=== PATIENT | female | born 1945 | race Caucasian/White ===

== ENCOUNTER → 2016-06-24 | Outpatient (CLI) | payer OTHER ==
[~2016-06-24] MED LIST: ALBUAER3 IN; AMLO2.5T PO; ASPI-231 PO; SIMV-8 PO; TIOTCAP INH
[2016-06-24 10:54] LABS: INR 1.06 (0.9-1.15); Partial Thromboplastin Time 29.9 sec (22.64-33.71); Prothrombin Time 10.9 sec (9.37-12.3)
[2016-06-24 10:58] LABS: Basophils # (auto) 0.1 uL; Basophils % (auto) 0.4 % (0.0-2.0); DEFINITIVE VIEW TRANSMISSION; Eosinophils # (auto) 0.1 uL; Eosinophils % (auto) 0.7 % (0.0-7.0); Hematocrit 49.6 % (36.0-46.0); Hemoglobin 16.1 g/dL (12.2-16.2); Lymphocytes # (auto) 1.6 uL; Lymphocytes % (auto) 11.1 % (10.0-50.0); Mean Corpuscular Hemoglobin 26.8 pg (28.0-32.0); Mean Corpuscular Hgb Conc. 32.5 g/dL (32.0-36.0); Mean Corpuscular Volume 82.4 fL (80.0-100.0); Mean Platelet Volume 9.5 fL (7.4-10.4); Monocytes % (auto) 6.9 % (0.0-12.0); Neutrophils % (auto) 80.9 % (37.0-80.0); Platelet Count (auto) 368 10^3/uL (140-450); Red Cell Distribution Width 17.3 % (11.6-16.0); White Blood Cell 14.9 10^3/uL (4.4-10.8)
== END | disposition home or self-care (01) ==
LOC: LAB 09:59
PROVIDERS: ATTEND Internal Medicine Pulmonary Disease
DX: Z01.812 Encounter for preprocedural laboratory examination (principal)
CPT/HCPCS: 36415; 85025; 85610; 85730

== ENCOUNTER 2016-06-28 12:16 | Day surgery (SDC) | payer OTHER ==
[~2016-06-28] VITALS: Ht 157.5 cm; Wt 62.6 kg
[2016-06-28] MEDS ORDERED: MEPERIDINE HCL (50 MG/ML) 1 ML VIAL IM ONE (12:30)
[2016-06-28] MEDS ORDERED: LIDOCAINE 2%HCL (LOCAL ANESTH.) INJ 20ML MDV ONE ×2 (13:20→13:25)
[2016-06-28] MEDS ORDERED: EPINEPHrine HCL 1 MG/1 ML AMP ONE (13:25)
[2016-06-28] MEDS ORDERED: LIDOCAINE HCL 2% TOP JELLY 5ML TOP ONE (13:25)
[2016-06-28] MEDS: MIDAZOLAM HCL 5 MG/ML-1ML VIAL ONE ×5 (14:08→14:25)
[2016-06-28] MEDS ORDERED: MIDAZOLAM HCL 5 MG/ML-1ML VIAL ONE (14:23)
[2016-06-28 15:40] VITALS: BP 138/64
== END 2016-06-28 15:50 | disposition home or self-care (01) ==
LOC: GI 12:16
PROVIDERS: ATTEND Internal Medicine Pulmonary Disease
DX: D49.1 Neoplasm of unspecified behavior of respiratory system (principal); J44.9 Chronic obstructive pulmonary disease, unspecified; F17.200 Nicotine dependence, unspecified, uncomplicated
CPT/HCPCS: 31625; 88108; 88305; 88341; 88342; 94640; J0171; J2175; J2250

== ENCOUNTER → 2016-07-02 | Outpatient (CLI) | payer OTHER ==
[2016-07-02 16:26] LABS: Basophils # (auto) 0 uL; Basophils % (auto) 0.5 % (0.0-2.0); DEFINITIVE VIEW TRANSMISSION; Eosinophils # (auto) 0.2 uL; Eosinophils % (auto) 2.5 % (0.0-7.0); Hematocrit 48.1 % (36.0-46.0); Hemoglobin 15.5 g/dL (12.2-16.2); Lymphocytes % (auto) 20.7 % (10.0-50.0); Mean Corpuscular Hemoglobin 26.4 pg (28.0-32.0); Mean Corpuscular Hgb Conc. 32.1 g/dL (32.0-36.0); Mean Corpuscular Volume 82.2 fL (80.0-100.0); Mean Platelet Volume 8.3 fL (7.4-10.4); Monocytes # (auto) 0.5 uL; Monocytes % (auto) 5.2 % (0.0-12.0); Neutrophils % (auto) 71.1 % (37.0-80.0); Platelet Count (auto) 460 10^3/uL (140-450); Red Cell Distribution Width 16.9 % (11.6-16.0); White Blood Cell 9.8 10^3/uL (4.4-10.8)
[2016-07-02 16:54] LABS: BUN/Creatinine Ratio 5.3; Calcium 9.6 mg/dL (8.5-10.1)
[2016-07-02 16:56] LABS: Bilirubin, Total 0.1 mg/dL (0.2-1.0); Total Protein 7.9 g/dL (6.4-8.2)
== END | disposition home or self-care (01) ==
LOC: LAB 16:14
PROVIDERS: ATTEND Internal Medicine Pulmonary Disease
DX: R91.8 Other nonspecific abnormal finding of lung field (principal)
CPT/HCPCS: 36415; 80053; 85025

== ENCOUNTER → 2016-07-06 | Outpatient (CLI) | payer OTHER ==
[2016-07-06 08:59] LABS: DEFINITIVE VIEW TRANSMISSION; Eosinophils # (auto) 0.2 uL; Eosinophils % (auto) 2.2 % (0.0-7.0); Lymphocytes # (auto) 1.6 uL; Lymphocytes % (auto) 15.7 % (10.0-50.0); Monocytes # (auto) 0.5 uL; Monocytes % (auto) 4.7 % (0.0-12.0)
[2016-07-06 09:36] LABS: Basophils # (auto) 0 uL; Basophils % (auto) 0.4 % (0.0-2.0); Hematocrit 46.7 % (36.0-46.0); Hemoglobin 15.1 g/dL (12.2-16.2); Mean Corpuscular Hemoglobin 26.4 pg (28.0-32.0); Mean Corpuscular Hgb Conc. 32.3 g/dL (32.0-36.0); Mean Corpuscular Volume 81.8 fL (80.0-100.0); Neutrophils # (auto) 7.9 uL; Platelet Count (auto) 397 10^3/uL (140-450); Red Cell Distribution Width 17.4 % (11.6-16.0); White Blood Cell 10.3 10^3/uL (4.4-10.8)
[2016-07-06 13:34] LABS: Albumin 2.8 g/dL (3.4-5.0); BUN/Creatinine Ratio 9.7; Bilirubin, Total 0.3 mg/dL (0.2-1.0); Calcium 9.3 mg/dL (8.5-10.1); Potassium 3.9 mmol/L (3.5-5.1); Total Protein 8.4 g/dL (6.4-8.2)
== END | disposition home or self-care (01) ==
LOC: LAB 08:20
PROVIDERS: ATTEND Internal Medicine
DX: I10 Essential (primary) hypertension (principal); R06.02 Shortness of breath; Z00.00 Encounter for general adult medical examination without abnormal findings; Z12.11 Encounter for screening for malignant neoplasm of colon
CPT/HCPCS: 36415; 80053; 80061; 82043; 82306; 84443; 85025

== ENCOUNTER → 2016-07-07 | Outpatient (CLI) | payer OTHER ==
[~2016-07-07] MED LIST changes: +ALBUTEROL SULF 2.5 MG/0.5ML(0.5%) NEB SOLN ONE
== END | disposition home or self-care (01) ==
LOC: RT 10:15
PROVIDERS: ATTEND Internal Medicine Pulmonary Disease
DX: C34.91 Malignant neoplasm of unspecified part of right bronchus or lung (principal)
CPT/HCPCS: 36600; 82805; 94060

== ENCOUNTER → 2016-08-02 | Outpatient (CLI) | payer OTHER ==
[~2016-08-02] MED LIST changes: -ALBUTEROL SULF 2.5 MG/0.5ML(0.5%) NEB SOLN ONE
== END | disposition home or self-care (01) ==
LOC: LAB 09:12
PROVIDERS: ATTEND Internal Medicine Pulmonary Disease
DX: R91.8 Other nonspecific abnormal finding of lung field (principal)
CPT/HCPCS: 36415; 82565; 84520

== ENCOUNTER → 2016-09-15 | Outpatient (CLI) | payer OTHER ==
[~2016-09-15] VITALS: Ht 157.5 cm; Wt 56.7 kg
[~2016-09-15] MED LIST changes: +ADENOSINE 48 MG in GIVE UN-DILUTED 0 ML IV ONE; +ALBUTEROL SULF 2.5 MG/0.5ML(0.5%) NEB SOLN NEB ONE; +ALBUTEROL SULF 2.5 MG/0.5ML(0.5%) NEB SOLN ONE; +IPRATROPIUM BROM 0.5 MG/2.5ML INH SOL NEB ONE; +IPRATROPIUM BROM 0.5 MG/2.5ML INH SOL ONE
== END | disposition home or self-care (01) ==
LOC: XY 08:32
PROVIDERS: ATTEND Internal Medicine Cardiovascular Disease
DX: Z01.818 Encounter for other preprocedural examination (principal); I49.1 Atrial premature depolarization
CPT/HCPCS: 78452; 93017; 93306; A9500; J0153

== ENCOUNTER → 2016-09-29 | Outpatient (CLI) | payer OTHER ==
[~2016-09-29] MED LIST changes: -ADENOSINE 48 MG in GIVE UN-DILUTED 0 ML IV ONE; -ALBUTEROL SULF 2.5 MG/0.5ML(0.5%) NEB SOLN NEB ONE; -ALBUTEROL SULF 2.5 MG/0.5ML(0.5%) NEB SOLN ONE; -IPRATROPIUM BROM 0.5 MG/2.5ML INH SOL NEB ONE; -IPRATROPIUM BROM 0.5 MG/2.5ML INH SOL ONE
== END | disposition home or self-care (01) ==
LOC: XYW 08:45
PROVIDERS: ATTEND Internal Medicine Cardiovascular Disease
DX: Z01.810 Encounter for preprocedural cardiovascular examination (principal); R07.89 Other chest pain; Z85.118 Personal history of other malignant neoplasm of bronchus and lung
CPT/HCPCS: 93306

== ENCOUNTER → 2016-10-01 | Outpatient (CLI) | payer OTHER ==
[2016-10-01 10:27] LABS: BUN/Creatinine Ratio 14.3; Calcium 9.4 mg/dL (8.5-10.1); Potassium 3.8 mmol/L (3.5-5.1)
== END | disposition home or self-care (01) ==
LOC: LAB 09:44
DX: C34.01 Malignant neoplasm of right main bronchus (principal)
CPT/HCPCS: 36415; 80048

== ENCOUNTER → 2016-10-27 | Outpatient (CLI) | payer OTHER ==
[2016-10-27 09:40] LABS: Basophils # (auto) 0 uL; Basophils % (auto) 0.5 % (0.0-2.0); CONDITION Y; DEFINITIVE SEE PRINTOUT; Eosinophils # (auto) 0.3 uL; Eosinophils % (auto) 3.7 % (0.0-7.0); Hemoglobin 14.5 g/dL (12.2-16.2); Lymphocytes # (auto) 2.3 uL; Lymphocytes % (auto) 26.1 % (10.0-50.0); Mean Corpuscular Hemoglobin 27.8 pg (28.0-32.0); Mean Corpuscular Hgb Conc. 32.9 g/dL (32.0-36.0); Mean Corpuscular Volume 84.4 fL (80.0-100.0); Mean Platelet Volume 8.8 fL (7.4-10.4); Monocytes # (auto) 0.4 uL; Monocytes % (auto) 5.1 % (0.0-12.0); Neutrophils # (auto) 5.7 uL; Neutrophils % (auto) 64.6 % (37.0-80.0); Platelet Count (auto) 441 10^3/uL (140-450); SUSPECT SEE PRINTOUT; White Blood Cell 8.8 10^3/uL (4.4-10.8)
[2016-10-27 10:11] LABS: Albumin 2.9 g/dL (3.4-5.0); BUN/Creatinine Ratio 10.1; Bilirubin, Total 0.3 mg/dL (0.2-1.0); Calcium 9.2 mg/dL (8.5-10.1); Potassium 3.9 mmol/L (3.5-5.1); Total Protein 7.5 g/dL (6.4-8.2)
== END | disposition home or self-care (01) ==
LOC: LAB 08:41
PROVIDERS: ATTEND Internal Medicine
DX: C34.91 Malignant neoplasm of unspecified part of right bronchus or lung (principal)
CPT/HCPCS: 36415; 80053; 83615; 85025

== ENCOUNTER → 2016-12-23 | Outpatient (CLI) | payer OTHER ==
[2016-12-23 08:41] LABS: Basophils # (auto) 0.1 uL; Basophils % (auto) 0.7 % (0.0-2.0); CONDITION Y; Eosinophils # (auto) 0.3 uL; Eosinophils % (auto) 2.5 % (0.0-7.0); Hematocrit 41.8 % (36.0-46.0); Hemoglobin 13.7 g/dL (12.2-16.2); Lymphocytes # (auto) 1.9 uL; Lymphocytes % (auto) 16.4 % (10.0-50.0); Mean Corpuscular Hemoglobin 27.1 pg (28.0-32.0); Mean Corpuscular Hgb Conc. 32.8 g/dL (32.0-36.0); Mean Corpuscular Volume 82.6 fL (80.0-100.0); Mean Platelet Volume 8.9 fL (7.4-10.4); Monocytes # (auto) 0.4 uL; Monocytes % (auto) 3.3 % (0.0-12.0); Neutrophils # (auto) 8.8 uL; Neutrophils % (auto) 77.1 % (37.0-80.0); Platelet Count (auto) 502 10^3/uL (140-450); Red Cell Distribution Width 16.8 % (11.6-16.0); White Blood Cell 11.5 10^3/uL (4.4-10.8)
[2016-12-23 09:10] LABS: Albumin 2.7 g/dL (3.4-5.0); BUN/Creatinine Ratio 10.3; Bilirubin, Total 0.2 mg/dL (0.2-1.0); Calcium 9.1 mg/dL (8.5-10.1); Potassium 3.2 mmol/L (3.5-5.1); Total Protein 8.1 g/dL (6.4-8.2)
== END | disposition home or self-care (01) ==
LOC: LAB 08:31
PROVIDERS: ATTEND Internal Medicine
DX: C34.91 Malignant neoplasm of unspecified part of right bronchus or lung (principal)
CPT/HCPCS: 36415; 80053; 83615; 85025

== ENCOUNTER → 2016-12-29 | Outpatient (CLI) | payer OTHER ==
[2016-12-29 11:31] LABS: Basophils # (auto) 0.1 uL; Basophils % (auto) 0.6 % (0.0-2.0); CONDITION Y; Eosinophils # (auto) 0.3 uL; Eosinophils % (auto) 3.2 % (0.0-7.0); Hematocrit 41.6 % (36.0-46.0); Hemoglobin 13.8 g/dL (12.2-16.2); Lymphocytes # (auto) 1.6 uL; Lymphocytes % (auto) 15.2 % (10.0-50.0); Mean Corpuscular Hemoglobin 27.7 pg (28.0-32.0); Mean Corpuscular Hgb Conc. 33.2 g/dL (32.0-36.0); Mean Corpuscular Volume 83.4 fL (80.0-100.0); Mean Platelet Volume 9.1 fL (7.4-10.4); Monocytes # (auto) 0.4 uL; Monocytes % (auto) 3.8 % (0.0-12.0); Neutrophils % (auto) 77.2 % (37.0-80.0); Platelet Count (auto) 454 10^3/uL (140-450); Red Cell Distribution Width 16.7 % (11.6-16.0); White Blood Cell 10.4 10^3/uL (4.4-10.8)
[2016-12-29 12:51] LABS: Albumin 2.9 g/dL (3.4-5.0); BUN/Creatinine Ratio 13.9; Calcium 9.9 mg/dL (8.5-10.1); Potassium 4.3 mmol/L (3.5-5.1)
[2016-12-29 13:05] LABS: Bilirubin, Total 0.2 mg/dL (0.2-1.0); Total Protein 7.8 g/dL (6.4-8.2)
== END | disposition home or self-care (01) ==
LOC: LAB 11:07
PROVIDERS: ATTEND Internal Medicine
DX: C34.91 Malignant neoplasm of unspecified part of right bronchus or lung (principal)
CPT/HCPCS: 36415; 80053; 85025

== ENCOUNTER → 2017-01-05 | Outpatient (CLI) | payer OTHER ==
[2017-01-05 11:18] LABS: Basophils # (auto) 0.1 uL; Basophils % (auto) 0.9 % (0.0-2.0); Eosinophils # (auto) 0.2 uL; Eosinophils % (auto) 3.1 % (0.0-7.0); Hematocrit 40.4 % (36.0-46.0); Hemoglobin 13.3 g/dL (12.2-16.2); Lymphocytes # (auto) 0.9 uL; Lymphocytes % (auto) 15.5 % (10.0-50.0); Mean Corpuscular Hemoglobin 27.9 pg (28.0-32.0); Mean Corpuscular Hgb Conc. 33.1 g/dL (32.0-36.0); Mean Corpuscular Volume 84.3 fL (80.0-100.0); Mean Platelet Volume 8.5 fL (7.4-10.4); Monocytes # (auto) 0.4 uL; Monocytes % (auto) 6.2 % (0.0-12.0); Neutrophils # (auto) 4.5 uL; Neutrophils % (auto) 74.3 % (37.0-80.0); Platelet Count (auto) 341 10^3/uL (140-450); Red Cell Distribution Width 16.2 % (11.8-14.3); White Blood Cell 6.1 10^3/uL (4.4-10.8)
[2017-01-05 11:36] LABS: Albumin 2.8 g/dL (3.4-5.0); BUN/Creatinine Ratio 18.5; Bilirubin, Total 0.2 mg/dL (0.2-1.0); Calcium 9.4 mg/dL (8.5-10.1); Potassium 3.7 mmol/L (3.5-5.1); Total Protein 7.8 g/dL (6.4-8.2)
== END | disposition home or self-care (01) ==
LOC: LAB 10:57
PROVIDERS: ATTEND Internal Medicine
DX: C34.91 Malignant neoplasm of unspecified part of right bronchus or lung (principal)
CPT/HCPCS: 36415; 80053; 85025

== ENCOUNTER → 2017-01-12 | Outpatient (CLI) | payer OTHER ==
[2017-01-12 11:15] LABS: Basophils # (auto) 0 uL; Basophils % (auto) 0.8 % (0.0-2.0); Eosinophils # (auto) 0.2 uL; Eosinophils % (auto) 3.8 % (0.0-7.0); Hematocrit 40.2 % (36.0-46.0); Hemoglobin 13.5 g/dL (12.2-16.2); Lymphocytes # (auto) 0.6 uL; Lymphocytes % (auto) 13.7 % (10.0-50.0); Mean Corpuscular Hemoglobin 28.2 pg (28.0-32.0); Mean Corpuscular Hgb Conc. 33.7 g/dL (32.0-36.0); Mean Corpuscular Volume 83.7 fL (80.0-100.0); Mean Platelet Volume 8.1 fL (6.9-10.8); Monocytes # (auto) 0.3 uL; Monocytes % (auto) 6.8 % (0.0-12.0); Neutrophils # (auto) 3.4 uL; Neutrophils % (auto) 74.9 % (37.0-80.0); Nucleated Red Blood Cells % 0.1 %; Platelet Count (auto) 334 10^3/uL (140-450); Red Cell Distribution Width 16.2 % (11.8-14.3); White Blood Cell 4.5 10^3/uL (4.4-10.8)
[2017-01-12 11:32] LABS: Albumin 2.9 g/dL (3.4-5.0); BUN/Creatinine Ratio 11.9; Bilirubin, Total 0.2 mg/dL (0.2-1.0); Calcium 9.2 mg/dL (8.5-10.1); Potassium 3.7 mmol/L (3.5-5.1); Total Protein 7.7 g/dL (6.4-8.2)
== END | disposition home or self-care (01) ==
LOC: LAB 10:53
PROVIDERS: ATTEND Internal Medicine
DX: C34.91 Malignant neoplasm of unspecified part of right bronchus or lung (principal)
CPT/HCPCS: 36415; 80053; 83615; 85025

== ENCOUNTER → 2017-01-19 | Outpatient (CLI) | payer OTHER ==
[2017-01-19 11:13] LABS: Basophils # (auto) 0 uL; Basophils % (auto) 1.3 % (0.0-2.0); Eosinophils # (auto) 0.2 uL; Hematocrit 40.8 % (36.0-46.0); Hemoglobin 13.6 g/dL (12.2-16.2); Lymphocytes # (auto) 0.6 uL; Lymphocytes % (auto) 17.4 % (10.0-50.0); Mean Corpuscular Hemoglobin 28.1 pg (28.0-32.0); Mean Corpuscular Hgb Conc. 33.3 g/dL (32.0-36.0); Mean Corpuscular Volume 84.4 fL (80.0-100.0); Monocytes # (auto) 0.2 uL; Monocytes % (auto) 6.6 % (0.0-12.0); Neutrophils # (auto) 2.4 uL; Neutrophils % (auto) 68.7 % (37.0-80.0); Nucleated Red Blood Cells % 0.1 %; Platelet Count (auto) 216 10^3/uL (140-450); White Blood Cell 3.5 10^3/uL (4.4-10.8)
[2017-01-19 11:46] LABS: Albumin 3.1 g/dL (3.4-5.0); BUN/Creatinine Ratio 13.3; Bilirubin, Total 0.4 mg/dL (0.2-1.0); Calcium 9.2 mg/dL (8.5-10.1); Potassium 4.1 mmol/L (3.5-5.1); Total Protein 7.8 g/dL (6.4-8.2)
== END | disposition home or self-care (01) ==
LOC: LAB 10:40
PROVIDERS: ATTEND Internal Medicine
DX: C34.10 Malignant neoplasm of upper lobe, unspecified bronchus or lung (principal)
CPT/HCPCS: 36415; 80053; 85025

== ENCOUNTER → 2017-01-26 | Outpatient (CLI) | payer OTHER ==
[2017-01-26 11:33] LABS: Basophils # (auto) 0 uL; Basophils % (auto) 1.5 % (0.0-2.0); Eosinophils # (auto) 0.2 uL; Eosinophils % (auto) 8.8 % (0.0-7.0); Hematocrit 36.9 % (36.0-46.0); Hemoglobin 12.3 g/dL (12.2-16.2); Lymphocytes # (auto) 0.5 uL; Lymphocytes % (auto) 24.4 % (10.0-50.0); Mean Corpuscular Hgb Conc. 33.3 g/dL (32.0-36.0); Mean Corpuscular Volume 84.1 fL (80.0-100.0); Mean Platelet Volume 8.4 fL (6.9-10.8); Monocytes # (auto) 0.1 uL; Monocytes % (auto) 6.6 % (0.0-12.0); Neutrophils # (auto) 1.2 uL; Neutrophils % (auto) 58.7 % (37.0-80.0); Nucleated Red Blood Cells % 0.2 %; Platelet Count (auto) 136 10^3/uL (140-450); Red Cell Distribution Width 18.2 % (11.8-14.3); White Blood Cell 2.1 10^3/uL (4.4-10.8)
[2017-01-26 12:10] LABS: BUN/Creatinine Ratio 23.6; Calcium 8.8 mg/dL (8.5-10.1); Potassium 3.6 mmol/L (3.5-5.1)
== END | disposition home or self-care (01) ==
LOC: LAB 10:39
PROVIDERS: ATTEND Internal Medicine
DX: C34.91 Malignant neoplasm of unspecified part of right bronchus or lung (principal)
CPT/HCPCS: 36415; 80048; 85025

== ENCOUNTER → 2017-02-02 | Outpatient (CLI) | payer OTHER ==
[2017-02-02 11:16] LABS: Hematocrit 39.4 % (36.0-46.0); Hemoglobin 12.9 g/dL (12.2-16.2); Mean Corpuscular Hemoglobin 28.5 pg (28.0-32.0); Mean Corpuscular Hgb Conc. 32.7 g/dL (32.0-36.0); Mean Corpuscular Volume 87.1 fL (80.0-100.0); Mean Platelet Volume 7.9 fL (6.9-10.8); Platelet Count (auto) 317 10^3/uL (140-450)
[2017-02-02 11:17] LABS: Red Cell Distribution Width 23.5 % (11.8-14.3)
[2017-02-02 11:19] LABS: Metamyelocytes % 0; Myelocytes % 0; Promyelocytes % 0; Reactive Lymphocytes 0; White Blood Cell 1.7 10^3/uL (4.4-10.8)
[2017-02-02 11:31] LABS: BUN/Creatinine Ratio 25.9; Bilirubin, Total 0.3 mg/dL (0.2-1.0); Total Protein 7.5 g/dL (6.4-8.2)
[2017-02-02 12:13] LABS: Anisocytosis Slight; Platelet Estimate Adequate
== END | disposition home or self-care (01) ==
LOC: LAB 10:43
PROVIDERS: ATTEND Internal Medicine
DX: C34.91 Malignant neoplasm of unspecified part of right bronchus or lung (principal)
CPT/HCPCS: 36415; 80053; 83615; 85007; 85027

== ENCOUNTER → 2017-02-09 | Outpatient (CLI) | payer OTHER ==
[2017-02-09 11:14] LABS: Basophils # (auto) 0 uL; Basophils % (auto) 0.6 % (0.0-2.0); Eosinophils # (auto) 0.1 uL; Eosinophils % (auto) 2.1 % (0.0-7.0); Hematocrit 38.1 % (36.0-46.0); Hemoglobin 13.1 g/dL (12.2-16.2); Lymphocytes # (auto) 0.3 uL; Lymphocytes % (auto) 6.6 % (10.0-50.0); Mean Corpuscular Hemoglobin 30.1 pg (28.0-32.0); Mean Corpuscular Hgb Conc. 34.4 g/dL (32.0-36.0); Mean Corpuscular Volume 87.5 fL (80.0-100.0); Mean Platelet Volume 7.6 fL (6.9-10.8); Monocytes # (auto) 0.6 uL; Monocytes % (auto) 15.9 % (0.0-12.0); Neutrophils % (auto) 74.8 % (37.0-80.0); Nucleated Red Blood Cells % 0.1 %; Platelet Count (auto) 394 10^3/uL (140-450)
[2017-02-09 11:22] LABS: Albumin 2.9 g/dL (3.4-5.0); BUN/Creatinine Ratio 18.5; Bilirubin, Total 0.2 mg/dL (0.2-1.0); Calcium 9.5 mg/dL (8.5-10.1); Potassium 3.7 mmol/L (3.5-5.1); Total Protein 7.6 g/dL (6.4-8.2)
[2017-02-09 11:44] LABS: Red Cell Distribution Width 25.9 % (11.8-14.3)
[2017-02-09 17:52] LABS: Anisocytosis Moderate; Platelet Estimate Adequate
== END | disposition home or self-care (01) ==
LOC: LAB 10:42
PROVIDERS: ATTEND Internal Medicine
DX: C34.91 Malignant neoplasm of unspecified part of right bronchus or lung (principal)
CPT/HCPCS: 36415; 80053; 85025

== ENCOUNTER → 2017-03-23 | Outpatient (CLI) | payer OTHER ==
[2017-03-23 09:30] LABS: Basophils # (auto) 0.1 uL; Basophils % (auto) 0.9 % (0.0-2.0); Eosinophils # (auto) 0.7 uL; Eosinophils % (auto) 8.8 % (0.0-7.0); Lymphocytes # (auto) 0.5 uL; Lymphocytes % (auto) 6.5 % (10.0-50.0); Mean Corpuscular Hemoglobin 32.6 pg (28.0-32.0); Mean Corpuscular Hgb Conc. 34.1 g/dL (32.0-36.0); Mean Corpuscular Volume 95.7 fL (80.0-100.0); Mean Platelet Volume 7.8 fL (6.9-10.8); Monocytes # (auto) 0.4 uL; Monocytes % (auto) 4.9 % (0.0-12.0); Neutrophils % (auto) 78.9 % (37.0-80.0); Nucleated Red Blood Cells % 0.1 %; Platelet Count (auto) 330 10^3/uL (140-450); White Blood Cell 7.5 10^3/uL (4.4-10.8)
[2017-03-23 09:42] LABS: Red Cell Distribution Width 21.5 % (11.8-14.3)
[2017-03-23 09:43] LABS: Anisocytosis Slight; Platelet Estimate Adequate
[2017-03-23 11:00] LABS: Albumin 3.2 g/dL (3.4-5.0); BUN/Creatinine Ratio 17.9; Bilirubin, Total 0.3 mg/dL (0.2-1.0); Calcium 9.3 mg/dL (8.5-10.1); Potassium 3.5 mmol/L (3.5-5.1); Total Protein 7.5 g/dL (6.4-8.2)
== END | disposition home or self-care (01) ==
LOC: LAB 09:02
PROVIDERS: ATTEND Internal Medicine
DX: C34.91 Malignant neoplasm of unspecified part of right bronchus or lung (principal)
CPT/HCPCS: 36415; 80053; 83615; 85025

== ENCOUNTER → 2017-04-14 | Outpatient (CLI) | payer OTHER ==
[2017-04-14 09:03] LABS: Basophils # (auto) 0 uL; Basophils % (auto) 0.7 % (0.0-2.0); Eosinophils # (auto) 0 uL; Eosinophils % (auto) 0.6 % (0.0-7.0); Hematocrit 44.6 % (36.0-46.0); Lymphocytes # (auto) 0.4 uL; Lymphocytes % (auto) 5.7 % (10.0-50.0); Mean Corpuscular Hemoglobin 32.4 pg (28.0-32.0); Mean Corpuscular Hgb Conc. 33.6 g/dL (32.0-36.0); Mean Corpuscular Volume 96.3 fL (80.0-100.0); Mean Platelet Volume 7.6 fL (6.9-10.8); Monocytes # (auto) 0.6 uL; Monocytes % (auto) 8.1 % (0.0-12.0); Neutrophils # (auto) 6.3 uL; Neutrophils % (auto) 84.9 % (37.0-80.0); Nucleated Red Blood Cells % 0.2 %; Platelet Count (auto) 315 10^3/uL (140-450); Red Cell Distribution Width 16.8 % (11.8-14.3); White Blood Cell 7.4 10^3/uL (4.4-10.8)
[2017-04-14 09:26] LABS: Albumin 2.9 g/dL (3.4-5.0); BUN/Creatinine Ratio 19.6; Bilirubin, Total 0.2 mg/dL (0.2-1.0); Calcium 9.1 mg/dL (8.5-10.1); Potassium 3.9 mmol/L (3.5-5.1); Total Protein 7.3 g/dL (6.4-8.2)
== END | disposition home or self-care (01) ==
LOC: LAB 08:41
PROVIDERS: ATTEND Internal Medicine
DX: C34.91 Malignant neoplasm of unspecified part of right bronchus or lung (principal)
CPT/HCPCS: 36415; 80053; 83615; 85025

== ENCOUNTER → 2017-04-28 | Outpatient (CLI) | payer OTHER ==
[2017-04-28 08:50] LABS: Basophils # (auto) 0.1 uL; Basophils % (auto) 0.9 % (0.0-2.0); Eosinophils # (auto) 0.5 uL; Eosinophils % (auto) 6.6 % (0.0-7.0); Hematocrit 44.3 % (36.0-46.0); Hemoglobin 14.5 g/dL (12.2-16.2); Lymphocytes # (auto) 0.4 uL; Lymphocytes % (auto) 6.2 % (10.0-50.0); Mean Corpuscular Hemoglobin 31.8 pg (28.0-32.0); Mean Corpuscular Hgb Conc. 32.7 g/dL (32.0-36.0); Mean Corpuscular Volume 97.2 fL (80.0-100.0); Monocytes # (auto) 0.4 uL; Monocytes % (auto) 6.3 % (0.0-12.0); Neutrophils # (auto) 5.6 uL; Nucleated Red Blood Cells % 0.2 %; Platelet Count (auto) 301 10^3/uL (140-450); Red Blood Cells 4.55 10^6/uL (4.0-5.20)
[2017-04-28 09:02] LABS: Albumin 3.1 g/dL (3.4-5.0); BUN/Creatinine Ratio 15.9; Bilirubin, Total 0.3 mg/dL (0.2-1.0); Calcium 8.7 mg/dL (8.5-10.1); Total Protein 7.4 g/dL (6.4-8.2)
[2017-04-28 09:08] LABS: Potassium 2.9 mmol/L (3.5-5.1)
== END | disposition home or self-care (01) ==
LOC: LAB 08:21
PROVIDERS: ATTEND Internal Medicine
DX: C34.91 Malignant neoplasm of unspecified part of right bronchus or lung (principal)
CPT/HCPCS: 36415; 80053; 83615; 85025

== ENCOUNTER → 2017-05-06 | Outpatient (CLI) | payer OTHER ==
[2017-05-06 09:42] LABS: Hematocrit 42.8 % (36.0-46.0); Hemoglobin 14.5 g/dL (12.2-16.2); Mean Corpuscular Hemoglobin 32.2 pg (28.0-32.0); Mean Corpuscular Hgb Conc. 33.8 g/dL (32.0-36.0); Mean Corpuscular Volume 95.3 fL (80.0-100.0); Platelet Count (auto) 174 10^3/uL (140-450); Red Blood Cells 4.49 10^6/uL (4.0-5.20); Red Cell Distribution Width 14.4 % (11.8-14.3)
[2017-05-06 09:58] LABS: Albumin 3.1 g/dL (3.4-5.0); Bilirubin, Total 0.4 mg/dL (0.2-1.0); Calcium 8.9 mg/dL (8.5-10.1); Potassium 3.9 mmol/L (3.5-5.1); Total Protein 7.5 g/dL (6.4-8.2)
[2017-05-06 10:52] LABS: White Blood Cell 1.8 10^3/uL (4.4-10.8)
[2017-05-06 10:53] LABS: Band Neutrophils % (manual) 0; Basophils % (manual) 0 (0.0-2.0); Blast Cells 0; Metamyelocytes % 0; Myelocytes % 0; Promyelocytes % 0; Reactive Lymphocytes 0
[2017-05-06 11:20] LABS: Eosinophils % (manual) 5 (0-7); Lymphocytes % (manual) 20 (10.0-50.0); Monocytes % (manual) 5 (0-12)
== END | disposition home or self-care (01) ==
LOC: LAB 08:40
PROVIDERS: ATTEND Internal Medicine
DX: Z12.11 Encounter for screening for malignant neoplasm of colon (principal); I10 Essential (primary) hypertension; E78.5 Hyperlipidemia, unspecified
CPT/HCPCS: 36415; 80053; 80061; 82306; 84443; 85007; 85027; 85652

== ENCOUNTER → 2017-05-26 | Outpatient (CLI) | payer OTHER ==
[2017-05-26 14:55] LABS: Basophils # (auto) 0.1 uL; Basophils % (auto) 1.2 % (0.0-2.0); Eosinophils # (auto) 0.3 uL; Eosinophils % (auto) 4.4 % (0.0-7.0); Hematocrit 43.6 % (36.0-46.0); Hemoglobin 14.5 g/dL (12.2-16.2); Lymphocytes # (auto) 0.6 uL; Lymphocytes % (auto) 9.8 % (10.0-50.0); Mean Corpuscular Hemoglobin 31.3 pg (28.0-32.0); Mean Corpuscular Hgb Conc. 33.3 g/dL (32.0-36.0); Monocytes # (auto) 0.5 uL; Monocytes % (auto) 9.1 % (0.0-12.0); Neutrophils # (auto) 4.4 uL; Neutrophils % (auto) 75.5 % (37.0-80.0); Nucleated Red Blood Cells % 0.2 %; Platelet Count (auto) 324 10^3/uL (140-450); Red Blood Cells 4.64 10^6/uL (4.0-5.20); Red Cell Distribution Width 14.5 % (11.8-14.3); White Blood Cell 5.9 10^3/uL (4.4-10.8)
[2017-05-26 15:43] LABS: BUN/Creatinine Ratio 16.1; Bilirubin, Total 0.2 mg/dL (0.2-1.0); Calcium 8.8 mg/dL (8.5-10.1); Potassium 3.5 mmol/L (3.5-5.1); Total Protein 7.6 g/dL (6.4-8.2)
== END | disposition home or self-care (01) ==
LOC: LAB 14:28
PROVIDERS: ATTEND Internal Medicine
DX: C34.91 Malignant neoplasm of unspecified part of right bronchus or lung (principal)
CPT/HCPCS: 36415; 80053; 83615; 85025

== ENCOUNTER → 2018-06-08 | Outpatient (CLI) | payer OTHER ==
[~2018-06-08] MED LIST changes: -AMLO2.5T PO; +AMLO2.5T6 PO
[2018-06-08 08:35] LABS: Basophils # (auto) 0.1 uL; Basophils % (auto) 0.8 % (0.0-2.0); Eosinophils # (auto) 0.2 uL; Eosinophils % (auto) 3.1 % (0.0-7.0); Hematocrit 44.8 % (36.0-46.0); Hemoglobin 14.5 g/dL (12.2-16.2); Lymphocytes # (auto) 0.6 uL; Lymphocytes % (auto) 8.7 % (10.0-50.0); Mean Corpuscular Hemoglobin 28.1 pg (28.0-32.0); Mean Corpuscular Hgb Conc. 32.5 g/dL (32.0-36.0); Mean Corpuscular Volume 86.6 fL (80.0-100.0); Monocytes # (auto) 0.4 uL; Monocytes % (auto) 5.9 % (0.0-12.0); Neutrophils % (auto) 81.5 % (37.0-80.0); Platelet Count (auto) 356 10^3/uL (140-450); Red Blood Cells 5.17 10^6/uL (4.0-5.20); White Blood Cell 7.3 10^3/uL (4.4-10.8)
[2018-06-08 09:27] LABS: Albumin 3.2 g/dL (3.4-5.0); BUN/Creatinine Ratio 18.9; Calcium 9.8 mg/dL (8.5-10.1); Potassium 4.6 mmol/L (3.5-5.1)
[2018-06-08 09:31] LABS: Bilirubin, Total 0.4 mg/dL (0.2-1.0); Total Protein 8.5 g/dL (6.4-8.2)
== END | disposition home or self-care (01) ==
LOC: LAB 08:23
PROVIDERS: ATTEND Internal Medicine
DX: C34.01 Malignant neoplasm of right main bronchus (principal); E78.5 Hyperlipidemia, unspecified; J44.9 Chronic obstructive pulmonary disease, unspecified
CPT/HCPCS: 36415; 80053; 80061; 82306; 84443; 85025

== ENCOUNTER → 2018-09-15 | Outpatient (CLI) | payer OTHER ==
[~2018-09-15] MED LIST changes: +AMI200T PO; -AMLO2.5T6 PO; +APIX5TAB PO; -ASPI-231 PO; +DIGO0.1229 PO; +MET5XLT PO; +PANT40T PO; -SIMV-8 PO
[2018-09-15 11:51] LABS: Albumin 2.6 g/dL (3.4-5.0); BUN/Creatinine Ratio 18.6; Calcium 8.9 mg/dL (8.5-10.1)
[2018-09-15 11:53] LABS: Bilirubin, Total 0.7 mg/dL (0.2-1.0); Total Protein 6.7 g/dL (6.4-8.2)
== END | disposition home or self-care (01) ==
LOC: Rad HDHVI 08:55
PROVIDERS: ATTEND Internal Medicine
DX: I10 Essential (primary) hypertension (principal); I49.1 Atrial premature depolarization; R07.89 Other chest pain; I31.3 Pericardial effusion (noninflammatory)
CPT/HCPCS: 36415; 80053; 93306

== ENCOUNTER → 2018-09-19 | Outpatient (CLI) | payer OTHER ==
[~2018-09-19] MED LIST changes: +ASPI81TA27 PO; +CYANOCOBALAMIN (B-12) 1000 MCG/1 ML VIAL IM ONE; +CYANOCOBALAMIN (B-12) 1000 MCG/1 ML VIAL ONE; +DOXY-216 PO; +FURO40TA4 PO; +FUROSEMIDE 40 MG/4 ML VIAL IV ONE; +FUROSEMIDE 40 MG/4 ML VIAL ONE; +HYDR-4683 PO; +LEVA1AER IN; +METH4PAK PO; +MONT5CHW17 PO; +ONDA4TAB5 PO; +POLY33504 PO; +POTA10TA51 PO; +POTASSIUM CHL 10 Meq TABLET PO ONE; +PRE5T PO
[2018-09-19 13:05] VITALS: BP 117/60
--- NOTE | 2018-09-19 13:05 | NUR ---
CHF PT ARRIVED TO THE CHF CLINIC FROM DR ESCALANTE OFFICE. PT HAVE SOME DIFFICULTY BREATHING DUE TO A PLEURAL EFFUSION. ORDERED LASIX. PT A/O X 3 V/S OBTAINED
[2018-09-19 14:30] VITALS: BP 121/48
--- NOTE | 2018-09-19 14:38 | NUR ---
Discharge Instructions See e-MAR for any mediations given with this visit. Patient education given on disease process. Patient verbalized understanding. Previous labs reviewed. Patient discharged in stable condition with after care instructions and follow up appointment. MEDICATIONS 1406 LASIX 40 MG IVP X 1 1408 POTASSIUM 40 MEQ PO X 1 1410 VITAMIN B12 1000 MCG IM X 1 Addendum: 10/30/18 at 1709 by MEE JACOBO RN RN RI LATE ENTRY 09/19/18 POTASSIUM 10 MEQ PO X 1 GIVEN NOT 40 MEQ
--- NOTE | 2018-09-19 15:30 | NUR ---
[facility] IN CLINIC TO [facility] ADJUSTER ORDER AND DEMOGRAPHICS FOR HOME O2 PER DR. CHAUDHARY.
--- NOTE | 2018-09-19 15:33 | NUR ---
RESP PT SATS 84% PLACED PT ON 2 LITERS, SATS UP TO 96. PT STARTED ON ELIQUIS DISCUSSED PLAN OF CARE WITH DAUGHTER MAYLIN [phone]. VERBALIZED UNDERSTANDING Addendum: 09/19/18 at 1550 by MEE JACOBO RN RN AL RESTARTED ON ELIQUIS PT STOPPED AFTER DISCHARGE FROM HOSPITAL. EDUCATED PT AND DAUGHTER NOT TO GO ABOVE 2 LITERS ON HOME O2. [facility] TO DELIVER OXYGEN
[2018-09-19 16:08] LABS: BUN/Creatinine Ratio 20.3; Calcium 8.5 mg/dL (8.5-10.1); Magnesium 2.4 mg/dL (1.6-2.6)
[2018-09-19 16:24] LABS: Eosinophils # (auto) 0 uL; Monocytes # (auto) 0.5 uL
[2018-09-19 16:29] LABS: Basophils # (auto) 0 uL; Basophils % (auto) 0.4 % (0.0-2.0); Eosinophils % (auto) 0.4 % (0.0-7.0); Hematocrit 38.2 % (36.0-46.0); Hemoglobin 12.3 g/dL (12.2-16.2); Lymphocytes # (auto) 0.8 uL; Lymphocytes % (auto) 9.8 % (10.0-50.0); Mean Corpuscular Hemoglobin 23.8 pg (28.0-32.0); Mean Corpuscular Hgb Conc. 32.2 g/dL (32.0-36.0); Mean Corpuscular Volume 74.1 fL (80.0-100.0); Monocytes % (auto) 5.5 % (0.0-12.0); Neutrophils # (auto) 7.1 uL; Neutrophils % (auto) 83.9 % (37.0-80.0); Nucleated Red Blood Cells % 0.4 %; Platelet Count (auto) 525 10^3/uL (140-450); Red Blood Cells 5.16 10^6/uL (4.0-5.20); White Blood Cell 8.4 10^3/uL (4.4-10.8)
[2018-09-19 16:30] LABS: Potassium 2.8 mmol/L (3.5-5.1)
[2018-09-19 16:36] LABS: Red Cell Distribution Width 20.5 % (11.8-14.3)
--- NOTE | 2018-09-19 17:00 | NUR ---
RESULTS OF ABNORMAL LABS TO DR. CHAUDHARY ON HYPOKALEMIA. PT. WAS GIVEN RX FOR LASIX AND POTASSIUM ELIXER BY DR. CHAUDHARY AT DISCHARGE. DAUGHTER CALLED WITH INSTRUCTIONS TO HAVE PT. TAKE KDUR ELIXER 40 MEQ. NOW, FOLLOWED BY 40 MEQ AT 2200 TONITE, FOLLOWED BY 40 MEQ. TID TOMORROW. DAUGHTER TO TEXT THIS RN TONIGHT IF PT. CAN'T TOLERATE MEDS. PT. TO RTC CLINIC THURS. AM FOR REDRAW OF K LEVEL PER MD ORDER.
== END | disposition home or self-care (01) ==
LOC: CHF HDHVI 13:17
PROVIDERS: ATTEND Internal Medicine Cardiovascular Disease
DX: I11.0 Hypertensive heart disease with heart failure (principal); I50.23 Acute on chronic systolic (congestive) heart failure; E83.40 Disorders of magnesium metabolism, unspecified; I48.91 Unspecified atrial fibrillation; I25.10 Atherosclerotic heart disease of native coronary artery without angina pectoris; I48.0 Paroxysmal atrial fibrillation; D64.9 Anemia, unspecified; G89.29 Other chronic pain; J44.9 Chronic obstructive pulmonary disease, unspecified; E78.5 Hyperlipidemia, unspecified; Z86.73 Personal history of transient ischemic attack (TIA), and cerebral infarction without residual deficits; Z87.891 Personal history of nicotine dependence
CPT/HCPCS: 36415; 80048; 82306; 83735; 83880; 85025; 96372; 96374; G0463; J1940; J3420

== ENCOUNTER → 2018-09-21 | Outpatient (CLI) | payer OTHER ==
[~2018-09-21] MED LIST changes: +ALBUTEROL SULF 2.5 MG/0.5ML(0.5%) NEB SOLN NEB ONE; +BUMETANIDE 1mg/4ml VIAL (0.25mg/ml) IV ONE; +BUMETANIDE 1mg/4ml VIAL (0.25mg/ml) ONE; -CYANOCOBALAMIN (B-12) 1000 MCG/1 ML VIAL IM ONE; -CYANOCOBALAMIN (B-12) 1000 MCG/1 ML VIAL ONE; +FUROSEMIDE 20 MG/2 ML VIAL IV ONE; +FUROSEMIDE 20 MG/2 ML VIAL ONE; -FUROSEMIDE 40 MG/4 ML VIAL IV ONE; -FUROSEMIDE 40 MG/4 ML VIAL ONE; +KETOROLAC TROMETH 60MG/2ML VIAL IM ONE; +KETOROLAC TROMETH 60MG/2ML VIAL ONE; -POTASSIUM CHL 10 Meq TABLET PO ONE; +POTASSIUM EFFERVESENT TAB 25 MEQ PO ONE
--- NOTE | 2018-09-21 09:45 | NUR ---
PT ARRIVED AT THE CLINIC FOR EVAL AND TX. PT, A/O X 3 VERY TIRED. C/O OF GENERALIZED PAIN 10/02/ V/S OBTAINED AND STABLE
--- NOTE | 2018-09-21 10:00 | NUR ---
IV insertion IV access obtained, via clean sterile technique by inserting 22 gauge catheter at after attempt(s). IV secured properly. No trauma to site. Patient tolerated .procedure well.
--- NOTE | 2018-09-21 10:05 | NUR ---
LABS STAT LABS SENT BREATHING TX PROVIDED
[2018-09-21 10:48] LABS: Lymphocytes # (auto) 0.7 uL; Monocytes # (auto) 0.8 uL; Nucleated Red Blood Cells % 0.1 %
[2018-09-21 10:49] LABS: Basophils # (auto) 0.1 uL; Basophils % (auto) 0.5 % (0.0-2.0); Eosinophils # (auto) 0 uL; Eosinophils % (auto) 0.4 % (0.0-7.0); Hematocrit 35.8 % (36.0-46.0); Hemoglobin 11.4 g/dL (12.2-16.2); Lymphocytes % (auto) 5.9 % (10.0-50.0); Mean Corpuscular Hemoglobin 23.7 pg (28.0-32.0); Mean Corpuscular Hgb Conc. 31.8 g/dL (32.0-36.0); Mean Corpuscular Volume 74.3 fL (80.0-100.0); Neutrophils # (auto) 9.9 uL; Neutrophils % (auto) 86.2 % (37.0-80.0); Red Blood Cells 4.81 10^6/uL (4.0-5.20); White Blood Cell 11.5 10^3/uL (4.4-10.8)
[2018-09-21 10:56] LABS: Red Cell Distribution Width 21.1 % (11.8-14.3)
--- NOTE | 2018-09-21 11:00 | NUR ---
STATUS PT PAIN IMPROVED BREATHING EASIER, MULTIPLE TRIPS TO THE BATHROOM
[2018-09-21 11:14] LABS: Albumin 2.6 g/dL (3.4-5.0); BUN/Creatinine Ratio 15.5; Calcium 8.4 mg/dL (8.5-10.1); Potassium 5.4 mmol/L (3.5-5.1)
[2018-09-21 11:17] LABS: Bilirubin, Total 0.6 mg/dL (0.2-1.0); Total Protein 6.5 g/dL (6.4-8.2)
--- NOTE | 2018-09-21 11:45 | NUR ---
EKG DONE PER MD ORDER. SR WITH NO ECTOPY. MED REC REVIEWED WITH DR. CHAUDHARY WITH INSTRUCTIONS FOR PT. TO STOP ELIQUIS, RESTART DIGOXIN 0.125MG Q HS, RESUME TOPROL 25MG, BUT ONLY Q AM UNTIL FOLLOW UP APPT. RESUME PANTOPRAZOLE Q AM, START BABY ASA 81MG Q HS. HOLD POTASSIUM TONIGHT, BUT TAKE LASIX, THEN DECREASE KDUR ELIXER TO 20 MEQ PO BID.
[2018-09-21 12:03] LABS: Platelet Count (auto) 514 10^3/uL (140-450)
--- NOTE | 2018-09-21 12:45 | NUR ---
IV removal IV DC'd with sterile technique, catheter fully intact. Pressure dressing applied to site. Patient tolerated procedure well. Discharged with aftercare instructions per MD. NOTE:
[2018-09-21 13:00] VITALS: BP 107/74
--- NOTE | 2018-09-21 13:00 | NUR ---
Discharge Instructions See e-MAR for any mediations given with this visit. Patient education given on disease process. Patient verbalized understanding. Previous labs reviewed. Patient discharged in stable condition with after care instructions and follow up appointment. MEDICATIONS 1020 TORADOL 30 MG IV X 1 1020 MED NEB X 1 1102 POTASSIUM 25 MEQ PO X 1 EFFERVESCENT 1125 BUMEX 1MG IVP X 1 1231 LASIX 20 MG IVP X 1
--- NOTE | 2018-09-21 13:05 | NUR ---
MULTIPLE RX REFILLS CALLED TO [facility]. PT. HAS NOT SEEN DR. LANDA SINCE 2017 PER PT. WHO STATES DR. LANDA TOLD HER THERE WAS NOTHING MORE FOR HIM TO DO EXCEPT HOSPICE. THIS RN WILL SPEAK WITH DR CHAUDHARY REGARDING UPDATE CONSULT. PT. FEELING BETTER AFTER TX.
== END | disposition home or self-care (01) ==
LOC: CHF HDHVI 09:22
PROVIDERS: ATTEND Internal Medicine
DX: C34.90 Malignant neoplasm of unspecified part of unspecified bronchus or lung (principal); I11.0 Hypertensive heart disease with heart failure; I50.22 Chronic systolic (congestive) heart failure; I48.91 Unspecified atrial fibrillation; R53.83 Other fatigue; D64.9 Anemia, unspecified; E78.5 Hyperlipidemia, unspecified; J44.9 Chronic obstructive pulmonary disease, unspecified; G89.29 Other chronic pain; Z87.891 Personal history of nicotine dependence
CPT/HCPCS: 36415; 80053; 83880; 85025; 94640; 96374; 96375; G0463; J1885; J1940; J3490; J7611

== ENCOUNTER → 2018-09-26 | Outpatient (CLI) | payer OTHER ==
[~2018-09-26] MED LIST changes: +ALBUTEROL SULF 2.5 MG/0.5ML(0.5%) NEB SOLN ONE; -ASPI81TA27 PO; -BUMETANIDE 1mg/4ml VIAL (0.25mg/ml) IV ONE; -BUMETANIDE 1mg/4ml VIAL (0.25mg/ml) ONE; +CYANOCOBALAMIN (B-12) 1000 MCG/1 ML VIAL IM ONE; +CYANOCOBALAMIN (B-12) 1000 MCG/1 ML VIAL ONE; -DOXY-216 PO; -FURO40TA4 PO; -FUROSEMIDE 20 MG/2 ML VIAL IV ONE; -FUROSEMIDE 20 MG/2 ML VIAL ONE; -HYDR-4683 PO; -KETOROLAC TROMETH 60MG/2ML VIAL IM ONE; -KETOROLAC TROMETH 60MG/2ML VIAL ONE; -LEVA1AER IN; -METH4PAK PO; -MONT5CHW17 PO; -ONDA4TAB5 PO; -POLY33504 PO; -POTA10TA51 PO; -POTASSIUM EFFERVESENT TAB 25 MEQ PO ONE; -PRE5T PO
[2018-09-26 10:00] VITALS: BP 116/55
[2018-09-26 11:35] VITALS: BP 125/53
--- NOTE | 2018-09-26 11:35 | NUR ---
IN TO CLINIC FOR CHF FOLLOWUP WITH DAUGHTER IN ATTENDANCE. PT ARRIVED VIA WHEELCHAIR WITH STAND BY ASSIST TO RECLINER CHAIR. STATUS REVIEWED. NO OXYGEN IN USE, O2 SAT 89-92 %. REVIEWED INTERVENTIONS WITH DAUGHTER SUCH HAVING HUMIDITY IN HER ROOM AND HUMIDITY TO HER NASAL TUBING WITH CONCENTRATOR USE. CXR DONE AND REVIEWED. WILL DEFER REVIEWING CXR FOR MD AND FOR OFFICIAL REPORT. LABS REVIEWED AND DRAWN . Discharge Instructions See e-MAR for any mediations given with this visit. Patient education given on disease process. Patient verbalized understanding. Previous labs reviewed. Patient discharged in stable condition with after CARE INSTRUCTIONS AND TO DAUGHTERS CARE. SEE FREQUENT VITAL SIGNS. MEDICATION ADMINSTRATION. ALBUTEROL MED NEB OVER 15 MINUTES START AT 1119/STOP AT 1132 VIT B12 1000 MCG IM TO LEFT DELTOID AT 1137
[2018-09-26 11:55] LABS: Eosinophils # (auto) 0.1 uL; Hemoglobin 11.2 g/dL (12.2-16.2); Mean Corpuscular Volume 73.9 fL (80.0-100.0); Monocytes # (auto) 0.7 uL; Neutrophils # (auto) 7.1 uL; White Blood Cell 8.8 10^3/uL (4.4-10.8)
[2018-09-26 11:58] LABS: Basophils # (auto) 0.1 uL; Basophils % (auto) 1.4 % (0.0-2.0); Eosinophils % (auto) 1.5 % (0.0-7.0); Hematocrit 35.7 % (36.0-46.0); Lymphocytes # (auto) 0.8 uL; Lymphocytes % (auto) 8.7 % (10.0-50.0); Mean Corpuscular Hemoglobin 23.2 pg (28.0-32.0); Mean Corpuscular Hgb Conc. 31.4 g/dL (32.0-36.0); Monocytes % (auto) 8.3 % (0.0-12.0); Neutrophils % (auto) 80.1 % (37.0-80.0); Red Blood Cells 4.83 10^6/uL (4.0-5.20)
[2018-09-26 12:18] LABS: Red Cell Distribution Width 21.8 % (11.8-14.3)
[2018-09-26 12:55] LABS: BUN/Creatinine Ratio 13.9; Calcium 9.6 mg/dL (8.5-10.1); Magnesium 2.6 mg/dL (1.6-2.6)
[2018-09-26 13:42] LABS: Platelet Count (auto) 477 10^3/uL (140-450)
== END | disposition home or self-care (01) ==
LOC: CHF HDHVI 09:21
PROVIDERS: ATTEND Internal Medicine
DX: I11.0 Hypertensive heart disease with heart failure (principal); I50.23 Acute on chronic systolic (congestive) heart failure; E83.40 Disorders of magnesium metabolism, unspecified; D64.9 Anemia, unspecified; J90 Pleural effusion, not elsewhere classified; I31.3 Pericardial effusion (noninflammatory); J81.1 Chronic pulmonary edema
CPT/HCPCS: 36415; 71046; 80048; 83735; 83880; 85025; 93701; 94640; G0463; J3420; J7611

== ENCOUNTER → 2018-09-28 | Outpatient (CLI) | payer OTHER ==
[~2018-09-28] MED LIST changes: -ALBUTEROL SULF 2.5 MG/0.5ML(0.5%) NEB SOLN NEB ONE; -ALBUTEROL SULF 2.5 MG/0.5ML(0.5%) NEB SOLN ONE; -CYANOCOBALAMIN (B-12) 1000 MCG/1 ML VIAL IM ONE; -CYANOCOBALAMIN (B-12) 1000 MCG/1 ML VIAL ONE
[2018-09-28 10:33] VITALS: BP 130/77
--- NOTE | 2018-09-28 10:33 | NUR ---
IN TO CLINIC WITH GRANDDAUGHTER IN ATTENDANCE. WITHOUT DISTRESS OR DISCOMFORT. AFFECT CHEERFUL AND SMILING . OXYGEN APPLIED AT 1 1/2 LPM WHILE IN CLINIC. PT DOES HAVE OXYGEN AT HOME. AWAITING NEW RX FOR PERFOROMIST AND ALBUTEROL. SAMPLES OF PERFOROMIST GIVEN TO PATIENT AND NEW RX WILL BE VERIFIED AGAIN WITH [facility] TODAY.LELA BOOTS TO BILATERAL LEGS REMOVED WITH SKIN DRY AND INTACT. LELA BOOTS REAPPLIED TO BILATERAL LEGS. TOLERATED WELL. ALTHOUGH CHANGE IN WEIGHT NOTED THERE APPEARS TO BE A DECREASE IN OVERALL SWELLING IN CALFS AND IN BILATERAL THIGHS. EDUCATION WITH PT AND GRANDAUGHTER DONE BY MARGARETH OLIVO. DISCHARGED TO SELF CARE WITH GRANDDAUGHTER IN NO DISTRESS OR DISCOMFORT AT TIME OF DISCHARGE.
[2018-09-28 11:10] VITALS: BP 108/54
[2018-09-28 11:54] LABS: Potassium 4.2 mmol/L (3.5-5.1)
== END | disposition home or self-care (01) ==
LOC: CHF HDHVI 09:36
PROVIDERS: ATTEND Internal Medicine Cardiovascular Disease
DX: C34.90 Malignant neoplasm of unspecified part of unspecified bronchus or lung (principal); E87.6 Hypokalemia; R94.4 Abnormal results of kidney function studies; I50.9 Heart failure, unspecified; E87.70 Fluid overload, unspecified
CPT/HCPCS: 36415; 82565; 83880; 84132; 84520; G0463

== ENCOUNTER → 2018-10-03 | Outpatient (CLI) | payer OTHER ==
[2018-09-30 09:49] VITALS: BP 118/58
[~2018-10-03] MED LIST changes: +ALBUTEROL SULF 2.5 MG/0.5ML(0.5%) NEB SOLN NEB ONE; +ALBUTEROL SULF 2.5 MG/0.5ML(0.5%) NEB SOLN ONE
--- NOTE | 2018-10-03 10:45 | NUR ---
DAUGHTER VERBALIZES CONCERN OVER PULSE READINGS IN 30'S AT HOME. STATES VERY ERRATIC WITH HEART RATE VARIED FROM 100-30. MEASUREMENT TAKEN BY PULSE OX METER, AND FAMILY REPLACED BATTERIES. INSTRUCTED TO OBTAIN BLOOD PRESSURE CUFF A BACKUP MEANS FOR VERIFYING HEART RATE.
[2018-10-03 10:50] VITALS: BP 110/50
--- NOTE | 2018-10-03 10:50 | NUR ---
Discharge Instructions See e-MAR for any mediations given with this visit. Patient education given on disease process. Patient verbalized understanding. Previous labs reviewed. Patient discharged in stable condition with after care instructions and follow up appointment. MEDICATIONS 1015 MED NEB ALBUTEROL X 1
== END | disposition home or self-care (01) ==
LOC: CHF HDHVI 09:43
PROVIDERS: ATTEND Internal Medicine Cardiovascular Disease
DX: C34.90 Malignant neoplasm of unspecified part of unspecified bronchus or lung (principal); I50.9 Heart failure, unspecified; J44.9 Chronic obstructive pulmonary disease, unspecified
CPT/HCPCS: 94640; G0463; J7611

== ENCOUNTER → 2018-10-06 | Outpatient (CLI) | payer OTHER ==
[~2018-10-06] MED LIST changes: -ALBUTEROL SULF 2.5 MG/0.5ML(0.5%) NEB SOLN NEB ONE; -ALBUTEROL SULF 2.5 MG/0.5ML(0.5%) NEB SOLN ONE
[2018-10-06 09:40] VITALS: BP 125/39
[2018-10-06 10:40] VITALS: BP 114/49
--- NOTE | 2018-10-06 10:40 | NUR ---
CHF CLINIC Discharge Instructions See e-MAR for any mediations given with this visit. Patient education given on disease process. Patient verbalized understanding. Previous labs reviewed. Patient discharged in stable condition with after care instructions and follow up appointment. NOTE BILAT LELA BOOT APPLIED
[2018-10-06 12:33] LABS: Basophils # (auto) 0 uL; Basophils % (auto) 0.6 % (0.0-2.0); Eosinophils # (auto) 0.2 uL; Hemoglobin 11.1 g/dL (12.2-16.2); Lymphocytes # (auto) 0.5 uL; Monocytes # (auto) 0.7 uL; White Blood Cell 7.9 10^3/uL (4.4-10.8)
[2018-10-06 12:35] LABS: Eosinophils % (auto) 2.2 % (0.0-7.0); Hematocrit 35.6 % (36.0-46.0); Lymphocytes % (auto) 6.4 % (10.0-50.0); Mean Corpuscular Hemoglobin 23.1 pg (28.0-32.0); Mean Corpuscular Hgb Conc. 31.2 g/dL (32.0-36.0); Mean Corpuscular Volume 73.9 fL (80.0-100.0); Neutrophils # (auto) 6.5 uL; Neutrophils % (auto) 81.8 % (37.0-80.0); Platelet Count (auto) 456 10^3/uL (140-450); Red Blood Cells 4.81 10^6/uL (4.0-5.20)
[2018-10-06 12:44] LABS: Red Cell Distribution Width 21.9 % (11.8-14.3)
[2018-10-06 13:49] LABS: Potassium 3.8 mmol/L (3.5-5.1)
[2018-10-06 13:51] LABS: BUN/Creatinine Ratio 14.5; Calcium 9.5 mg/dL (8.5-10.1)
== END | disposition home or self-care (01) ==
LOC: CHF HDHVI 09:33
PROVIDERS: ATTEND Internal Medicine
DX: I11.0 Hypertensive heart disease with heart failure (principal); I50.9 Heart failure, unspecified; D64.9 Anemia, unspecified
CPT/HCPCS: 36415; 80048; 83880; 85025; G0463

== ENCOUNTER → 2018-10-13 | Outpatient (CLI) | payer OTHER ==
[2018-10-13 10:15] VITALS: BP 128/65
--- NOTE | 2018-10-13 10:15 | NUR ---
CHF CLINIC Discharge Instructions See e-MAR for any mediations given with this visit. Patient education given on disease process. Patient verbalized understanding. Previous labs reviewed. Patient discharged in stable condition with after care instructions and follow up appointment. NOTE BILAT LELA BOOTS APPLIED, PATIENT WILL RETURN ON TUESDAY 10/17 FOR MD APPT AND CHF CLINIC VISIT.
== END | disposition home or self-care (01) ==
LOC: CHF HDHVI 09:39
PROVIDERS: ATTEND Internal Medicine Cardiovascular Disease
DX: I11.0 Hypertensive heart disease with heart failure (principal); I50.9 Heart failure, unspecified; I87.2 Venous insufficiency (chronic) (peripheral)
CPT/HCPCS: G0463

== ENCOUNTER → 2018-10-24 | Outpatient (CLI) | payer OTHER ==
[~2018-10-24] VITALS: Ht 33 cm; Wt 49.0 kg
[~2018-10-24] MED LIST changes: +ALBUTEROL SULF 2.5 MG/0.5ML(0.5%) NEB SOLN NEB ONE; +ALBUTEROL SULF 2.5 MG/0.5ML(0.5%) NEB SOLN ONE; +ASPI81TA27 PO; +DOXY-216 PO; +FURO40TA4 PO; +HYDR-4683 PO; +LEVA1AER IN; +MAGNESIUM CITRATE SOLUTION 300 ML BTL ONE; +MAGNESIUM CITRATE SOLUTION 300 ML BTL PO ONE; +METH4PAK PO; +MONT5CHW17 PO; +ONDA4TAB5 PO; +ONDANSETRON HCL 4 MG/2 ML VIAL IV ONE; +ONDANSETRON HCL 4 MG/2 ML VIAL ONE; +POLY33504 PO; +POTA10TA51 PO; +POTASSIUM EFFERVESENT TAB 25 MEQ ONE; +POTASSIUM EFFERVESENT TAB 25 MEQ PO ONE; +PRE5T PO; +methylPREDNISolone SOD SUCC 125 MG/2 ML VL ONE
--- NOTE | 2018-10-24 09:40 | NUR ---
CHF PT ARRIVED TO THE CHF CLINIC STATING SHE HAS A LOSS OF APPETITE, CRAVINGS OF WATER, TROUBLE SWALLOWING, DIZZINESS AND CONSTIPATED. A/O X 3, DAUGHTER AT BEDSIDE. VITAL SIGNS OBTAINED AND IV STARTED LABS SENT
--- NOTE | 2018-10-24 09:50 | NUR ---
IV insertion IV access obtained, via clean sterile technique by inserting 22 gauge catheter at after attempt(s). IV secured properly. No trauma to site. Patient tolerated procedure well.
[2018-10-24 10:40] LABS: Basophils # (auto) 0 uL; Basophils % (auto) 0.2 % (0.0-2.0); Eosinophils # (auto) 0 uL; Eosinophils % (auto) 0.1 % (0.0-7.0); Hematocrit 34.6 % (36.0-46.0); Monocytes # (auto) 0.6 uL
--- NOTE | 2018-10-24 10:44 | NUR ---
COMPLETED MED NEB. REPORTS RELIEF. DAUGHTER IN ATTENDANCE .
[2018-10-24 10:55] LABS: Hemoglobin 10.6 g/dL (12.2-16.2); Lymphocytes # (auto) 0.2 uL; Lymphocytes % (auto) 1.6 % (10.0-50.0); Mean Corpuscular Hemoglobin 22.2 pg (28.0-32.0); Mean Corpuscular Hgb Conc. 30.5 g/dL (32.0-36.0); Mean Corpuscular Volume 72.8 fL (80.0-100.0); Monocytes % (auto) 4.7 % (0.0-12.0); Neutrophils # (auto) 12.1 uL; Neutrophils % (auto) 93.4 % (37.0-80.0); Nucleated Red Blood Cells % 0.2 %; Platelet Count (auto) 299 10^3/uL (140-450); Red Blood Cells 4.75 10^6/uL (4.0-5.20)
[2018-10-24 11:27] LABS: Red Cell Distribution Width 22.1 % (11.8-14.3)
--- NOTE | 2018-10-24 11:37 | NUR ---
ECHO ECHO COMPLETED PT TOLERATED WELL
[2018-10-24 12:33] LABS: Albumin 2.6 g/dL (3.4-5.0); Calcium 8.7 mg/dL (8.5-10.1); Magnesium 2.9 mg/dL (1.6-2.6)
[2018-10-24 12:36] LABS: BUN/Creatinine Ratio 24.7; Bilirubin, Total 0.8 mg/dL (0.2-1.0); Total Protein 6.8 g/dL (6.4-8.2)
[2018-10-24 12:42] LABS: Potassium 2.7 mmol/L (3.5-5.1)
--- NOTE | 2018-10-24 13:30 | NUR ---
STAT LABS RETURNED AND GIVEN TO CLINIC PROVIDER. ORDERS RECIEVED AND CARRIED OUT.
--- NOTE | 2018-10-24 13:40 | NUR ---
MEDICATION FOR NAUSEA ADMINISTERED IN ANTICIPATION OF PTS REPORT OF PERSISTENT N/V X MULTIPLE DAYS.
--- NOTE | 2018-10-24 14:00 | NUR ---
TOOK ORAL POTASSIUM WITHOUT NAUSEA AND STARTING IVFLUIDS FOR HYDRATION. PT WITHOUT DISTRESS.
--- NOTE | 2018-10-24 15:49 | NUR ---
CXR COMPLETED. MEDICATED WITH MAG CITRATE FOR CONSTIPATION. PT AGREES THAT HER NAUSEA IS RELATED TO CONSTIPATION. REPORTS POOR ORAL INTAKE. DAUGHTER IS AT BEDSIDE.
--- NOTE | 2018-10-24 16:00 | NUR ---
ALL CARE ADMINISTERED BY YASMIN OLIVO. ALL ORDERS RECIEVED DIRECTLY FROM DR CHAUDHARY WELL LIMITED ECHOCARDIOGRAM VIEWED DIRECTLY BY MD DURING STUDY. MD UPDATED WITH ALL PATIENT STATUS AND DIAGNOSTICS. RN UPDATED MD AND RECIEVED ORDERS 3 TIMES THROUGHOUT THE DAY.
[2018-10-24 16:05] VITALS: BP 104/46
--- NOTE | 2018-10-24 16:05 | NUR ---
CHF DISCHARGED TO CARE OF DAUGHTER IN NO DISTRESS OR DISCOMFORT AT TIME OF DISCHARGE. INSTRUCTIONS TO HOLD TOPROL, HOLD DIGOXIN TONIGHT. TAKE DOUBLE POTASSIUM WITH LASIX TONIGHT. FOLLOWUP IN CLINIC IN AM 10/25/18 REPEAT BACK INSTRUCTIONS OBTAINED AND PTS DAUGHTER PUT INSTRUCTIONS IN HER PHONE. MEDICATION ADMINISTRATION PERFORMIST MED NEB AT 1050/1100 POTASSIUM 50 MEQ EFFERVESCENT PO AT 1345 0.9 NS 100 ML START AT 1400/STOP AT 1500 SOLUMEDROL 125MG IVP AT 1505 MAG CITRATE 1/2 BOTTLE PO AT 1545 ZOFRAN 4 MG IVP AT 1340
== END | disposition home or self-care (01) ==
LOC: CHF HDHVI 09:56
PROVIDERS: ATTEND Internal Medicine
DX: I11.0 Hypertensive heart disease with heart failure (principal); I50.23 Acute on chronic systolic (congestive) heart failure; E83.40 Disorders of magnesium metabolism, unspecified; D64.9 Anemia, unspecified; R06.02 Shortness of breath; C34.90 Malignant neoplasm of unspecified part of unspecified bronchus or lung; R42 Dizziness and giddiness; R53.83 Other fatigue; R07.89 Other chest pain; R05 Cough; R13.10 Dysphagia, unspecified; J90 Pleural effusion, not elsewhere classified; I31.3 Pericardial effusion (noninflammatory); I48.0 Paroxysmal atrial fibrillation; I25.10 Atherosclerotic heart disease of native coronary artery without angina pectoris; G89.29 Other chronic pain; J44.9 Chronic obstructive pulmonary disease, unspecified; E78.5 Hyperlipidemia, unspecified; M19.90 Unspecified osteoarthritis, unspecified site; Z87.891 Personal history of nicotine dependence; Z86.73 Personal history of transient ischemic attack (TIA), and cerebral infarction without residual deficits; Z87.01 Personal history of pneumonia (recurrent); Z86.711 Personal history of pulmonary embolism
CPT/HCPCS: 36415; 71046; 80053; 83735; 83880; 85025; 93005; 93306; 94640; 96361; 96374; 96375; G0463; J2405; J2930; J7611; 96360

== ENCOUNTER → 2018-10-27 | Outpatient (CLI) | payer OTHER ==
[~2018-10-27] MED LIST changes: -ALBUTEROL SULF 2.5 MG/0.5ML(0.5%) NEB SOLN NEB ONE; -ALBUTEROL SULF 2.5 MG/0.5ML(0.5%) NEB SOLN ONE; -AMI200T PO; +AMIO200T4 PO; +ASPI-404 PO; -ASPI81TA27 PO; -DIGO0.1229 PO; +DIGO0.1238 PO; +FUROSEMIDE 20 MG/2 ML VIAL IV ONE; +FUROSEMIDE 20 MG/2 ML VIAL ONE; -HYDR-4683 PO; +HYDR-4833 PO; -MAGNESIUM CITRATE SOLUTION 300 ML BTL ONE; -MAGNESIUM CITRATE SOLUTION 300 ML BTL PO ONE; -MET5XLT PO; +METO-6 PO; +ONDA-144 PO; -ONDA4TAB5 PO; -POTASSIUM EFFERVESENT TAB 25 MEQ ONE; -POTASSIUM EFFERVESENT TAB 25 MEQ PO ONE; +SODIUM CHLORIDE 0.9% 1,000 ML IV SCH; +methylPREDNISolone SOD SUCC 125 MG/2 ML VL IV ONE
--- NOTE | 2018-10-27 10:15 | NUR ---
IN TO CLINIC WITH COMPLAINT OF WEAKNESS, FATIGUE, AND NOT FEELING WELL., DAUGHTER IN ATTENDANCE. CLINIC PROVIDER CONSULTED.
--- NOTE | 2018-10-27 11:10 | NUR ---
IV PLACED TO RIGHT AC. STAT LABS DRAWN AND SENT. MEDICATED PER ORDER. FAMILY IN ATTENDANCE.
[2018-10-27 11:12] LABS: Basophils # (auto) 0.1 uL; Eosinophils # (auto) 0 uL; Mean Corpuscular Hgb Conc. 31.2 g/dL (32.0-36.0)
[2018-10-27 11:13] LABS: Basophils % (auto) 0.9 % (0.0-2.0); Eosinophils % (auto) 0.1 % (0.0-7.0); Hematocrit 35.9 % (36.0-46.0); Hemoglobin 11.2 g/dL (12.2-16.2); Lymphocytes # (auto) 0.3 uL; Lymphocytes % (auto) 3.3 % (10.0-50.0); Mean Corpuscular Hemoglobin 22.8 pg (28.0-32.0); Mean Corpuscular Volume 72.9 fL (80.0-100.0); Monocytes # (auto) 0.9 uL; Monocytes % (auto) 8.4 % (0.0-12.0); Neutrophils # (auto) 9.2 uL; Neutrophils % (auto) 87.3 % (37.0-80.0); Platelet Count (auto) 260 10^3/uL (140-450); Red Blood Cells 4.93 10^6/uL (4.0-5.20); White Blood Cell 10.5 10^3/uL (4.4-10.8)
[2018-10-27 11:22] LABS: Red Cell Distribution Width 22.7 % (11.8-14.3)
[2018-10-27 11:38] LABS: Albumin 2.8 g/dL (3.4-5.0); BUN/Creatinine Ratio 42.8; Potassium 4.3 mmol/L (3.5-5.1)
[2018-10-27 11:43] LABS: Bilirubin, Total 0.9 mg/dL (0.2-1.0); Total Protein 7.1 g/dL (6.4-8.2)
[2018-10-27 12:08] LABS: Magnesium 4.2 mg/dL (1.6-2.6)
--- NOTE | 2018-10-27 12:30 | NUR ---
NAUSEA RELIEVED. LABS RETURNED. AND ORDERS RECIEVED. START 0.9 NS AT 250 ML/HR .
--- NOTE | 2018-10-27 14:00 | NUR ---
DR TREADWELL REVIEWED STATUS AND GAVE ORDERS FOR NEW RX FOR ZOFRAN AND NORCO. RX ZOFRAN 4 MG PO Q 8 HR PRN NAUSEA QUANTITY 90 NORCO 10/325 1 PO Q 8 HR PRN PAIN QUANTITY 90. NO REFILLS. TRIPLICATE AND PAPER COPY GIVEN TO DAUGHTER TO FILL WITH INSTRUCTIONS TO TAKE ONLY 1/2 TAB NORCO TO START UNTIL HER TOLERANCE IS ESTABLISHED. REPEAT BACK INSTRUCTIONS OBTAINED.
--- NOTE | 2018-10-27 15:38 | NUR ---
DISCHARGED TO CARE OF DAUGHTER IN NO DISTRESS OR DISCOMFORT. DENIES NAUSEA. REPORTS FEELING HUNGRY. REVIEWED OPTIONS FOR BETTER FOOD MANAGEMENT TO PREVENT MALNUTRITION. REPEAT BACK INSTRUCTIONS OBTAINED. MEDICATION ADMINISTRATION NS AT 250 ML/HR START AT 1230/STOP AT 1530 ZOFRAN 4 MG IVP AT 1110 SOLUMEDROL 125 MG IVP AT 1030 LASIX 20 MG IVP AT 1500 NEW RX FOR ZOFRAN AND FOR NORCO ON PRIOR NOTE
[2018-10-30 10:08] VITALS: BP 124/53
== END | disposition home or self-care (01) ==
LOC: CHF HDHVI 10:21
PROVIDERS: ATTEND Internal Medicine
DX: I11.0 Hypertensive heart disease with heart failure (principal); I50.23 Acute on chronic systolic (congestive) heart failure; I48.0 Paroxysmal atrial fibrillation; I25.10 Atherosclerotic heart disease of native coronary artery without angina pectoris; R74.8 Abnormal levels of other serum enzymes; R11.2 Nausea with vomiting, unspecified; R25.2 Cramp and spasm; R53.83 Other fatigue; C34.90 Malignant neoplasm of unspecified part of unspecified bronchus or lung; R63.0 Anorexia; D64.9 Anemia, unspecified; E83.40 Disorders of magnesium metabolism, unspecified; J44.9 Chronic obstructive pulmonary disease, unspecified; E78.5 Hyperlipidemia, unspecified; M19.90 Unspecified osteoarthritis, unspecified site; G89.29 Other chronic pain; J81.1 Chronic pulmonary edema; Z86.73 Personal history of transient ischemic attack (TIA), and cerebral infarction without residual deficits; Z87.891 Personal history of nicotine dependence
CPT/HCPCS: 36415; 80053; 82150; 83690; 83735; 83880; 85025; 96361; 96374; 96375; G0463; J1940; J2405; J2930; J7030; 96360

== ENCOUNTER 2018-10-29 09:48 | Inpatient (IN) | payer OTHER ==
[~2018-10-29] VITALS: Ht 152.4 cm; Wt 55.8 kg
[~2018-10-29 09:48] MED LIST changes: +AMI200T PO; -AMIO200T4 PO; -ASPI-404 PO; +DIGO0.1229 PO; -DIGO0.1238 PO; -DOXY-216 PO; -FURO40TA4 PO; -FUROSEMIDE 20 MG/2 ML VIAL IV ONE; -FUROSEMIDE 20 MG/2 ML VIAL ONE; -HYDR-4833 PO; -LEVA1AER IN; +MET5XLT PO; -METH4PAK PO; -METO-6 PO; -MONT5CHW17 PO; -ONDA-144 PO; -ONDANSETRON HCL 4 MG/2 ML VIAL IV ONE; -ONDANSETRON HCL 4 MG/2 ML VIAL ONE; -POLY33504 PO; -POTA10TA51 PO; -PRE5T PO; -SODIUM CHLORIDE 0.9% 1,000 ML IV SCH; -methylPREDNISolone SOD SUCC 125 MG/2 ML VL IV ONE; -methylPREDNISolone SOD SUCC 125 MG/2 ML VL ONE
[2018-10-29] MEDS ORDERED: ONDANSETRON HCL 4 MG/2 ML VIAL IV ONE (11:00)
[2018-10-29] MEDS ORDERED: SODIUM CHLORIDE 0.9% 500 ML IVB ONE (11:00)
[2018-10-29 11:41] LABS: Eosinophils # (auto) 0 uL; Hemoglobin 11.7 g/dL (12.2-16.2); Monocytes # (auto) 0.6 uL; Monocytes % (auto) 4.3 % (0.0-12.0)
[2018-10-29 11:43] LABS: Basophils # (auto) 0.1 uL; Basophils % (auto) 0.4 % (0.0-2.0); Hematocrit 38.5 % (36.0-46.0); Lymphocytes # (auto) 0.7 uL; Lymphocytes % (auto) 4.5 % (10.0-50.0); Mean Corpuscular Hemoglobin 21.9 pg (28.0-32.0); Mean Corpuscular Hgb Conc. 30.3 g/dL (32.0-36.0); Mean Corpuscular Volume 72.2 fL (80.0-100.0); Neutrophils # (auto) 13.3 uL; Neutrophils % (auto) 90.8 % (37.0-80.0); Nucleated Red Blood Cells % 0.3 %; Platelet Count (auto) 270 10^3/uL (140-450); Potassium 3.1 mmol/L (3.5-5.1); Red Blood Cells 5.33 10^6/uL (4.0-5.20); White Blood Cell 14.6 10^3/uL (4.4-10.8)
[2018-10-29 11:46] LABS: Magnesium 3.7 mg/dL (1.6-2.6)
[2018-10-29 11:48] LABS: Red Cell Distribution Width 22.3 % (11.8-14.3)
[2018-10-29 11:49] LABS: BUN/Creatinine Ratio 56.9; Calcium 8.8 mg/dL (8.5-10.1); Total Protein 7.2 g/dL (6.4-8.2)
[2018-10-29 11:51] LABS: Urine Bacteria NONE SEEN /hpf (None Seen); Urine Blood Negative /uL (Negative); Urine Specific Gravity 1.012 (1.001-1.035); Urine WBC 2 /hpf (0 - 5)
[2018-10-29] MEDS ORDERED: LACTULOSE 20Gm/30ML SOLN PO PRN (13:15)
[2018-10-29] MEDS ORDERED: MORPHINE SULF INJ 2 MG/ML SYRINGE 1ML IV PRN (13:15)
[2018-10-29] MEDS ORDERED: methylPREDNISolone SOD SUCC 125 MG/2 ML VL IV ONE (13:15)
[2018-10-29] MEDS ORDERED: ALBUTEROL SULF 2.5 MG/0.5ML(0.5%) NEB SOLN NEB PRN (13:15)
[2018-10-29] MEDS ORDERED: NITROGLYCERIN 0.4 MG SL TAB SL PRN (13:15)
[2018-10-29] MEDS: cefTRIAXone 1GM/50ML D5W 50 ML IV SCH (14:11)
[2018-10-29] MEDS: SOD CHL 0.9%/ KCL 20MEQ 1,000 ML IV SCH (14:12)
[2018-10-29 15:10] VITALS: BP 112/47
[2018-10-29] MEDS: CLINDAMYCIN 600MG IV 50 ML IV SCH ×2 (15:47→22:24)
--- NOTE | 2018-10-29 17:30 | NUR ---
Telemetry admit from ER DIANAROSIE admitted to Telemetry unit after SBAR received. Patient oriented to Reyna Villanueva, RN primary RN, unit, room, bed, and unit policies regarding patient care and visiting hours. Patient now on continuous telemetry monitoring, tele box # HC 22 and telemetry reading on arrival to unit is . Patient placed on bedside oxygen, weighed by bedscale and encouraged to call if they need something. All questions and concerns addressed, patient verbalized understanding. Note:
[2018-10-29] MEDS: methylPREDNISolone SOD SUCC 40 MG/ML VL IV SCH (17:44)
--- NOTE | 2018-10-29 17:45 | NUR ---
Patient requesting pain medication. Patient states she takes [place] 5/325 and wants it ordered for her at this visit. Patient states she does not want anything stronger. Page placed to Dr. Ortez.
[2018-10-29] MEDS ORDERED: ONDA4TAB5 PO (17:53)
[2018-10-29] MEDS ORDERED: HYDR-4683 PO (17:53)
[2018-10-29] MEDS ORDERED: FURO40TA4 PO (17:53)
[2018-10-29] MEDS ORDERED: PRE5T PO (17:53)
[2018-10-29] MEDS ORDERED: POTA10TA51 PO (17:53)
[2018-10-29] MEDS ORDERED: ASPI81TA27 PO (17:53)
[2018-10-29] MEDS ORDERED: MONT5CHW17 PO (17:53)
[2018-10-29] MEDS ORDERED: LEVA1AER IN (17:53)
[2018-10-29 18:13] VITALS: BP 110/55
[2018-10-29] MEDS: ALBUTEROL SULF 2.5 MG/0.5ML(0.5%) NEB SOLN NEB SCH (18:40)
[2018-10-29] MEDS: HYDROcodone-ACET 5/325MG TAB PO PRN (18:54)
--- NOTE | 2018-10-29 19:50 | NUR ---
OPENING NOTES RECEIVED REPORT FROM DAY SHIFT NURSE. PT IS AWAKE AND ORIENTATED X 4 WITH NO S/S OF DISTRESS NOR PAIN. NO SOB NOTED. ABDOMEN DISTENDED AND FIRM. BED IS IN LOWEST POSITION AND CALL LIGHT IS WITH IN REACH. BED BRAKES ARE LOCKED AND SIDE RAILS ARE UP X 2. HOB IS 30 DEGREES. BED ALARM IS ARMED. WILL CONTINUE TO MONITOR Q 1HR.
[2018-10-29 22:00] VITALS: BP 102/56
--- NOTE | 2018-10-30 01:24 | NUR ---
IV insertion IV access obtained, via clean sterile technique by inserting 22 gauge catheter at right hand after 2 attempts. IV secured properly. No trauma to site. Patient tolerated well.
[2018-10-30] MEDS: methylPREDNISolone SOD SUCC 40 MG/ML VL IV SCH ×4 (01:38→21:40)
[2018-10-30 05:00] VITALS: BP 118/46
[2018-10-30] MEDS: ALBUTEROL SULF 2.5 MG/0.5ML(0.5%) NEB SOLN NEB SCH ×4 (06:27→19:00)
[2018-10-30] MEDS: CLINDAMYCIN 600MG IV 50 ML IV SCH (06:29)
[2018-10-30 06:47] LABS: Basophils # (auto) 0 uL; Eosinophils # (auto) 0 uL; Hematocrit 36.3 % (36.0-46.0); Lymphocytes # (auto) 0.1 uL; Neutrophils # (auto) 10.3 uL; Nucleated Red Blood Cells % 0.2 %
[2018-10-30 06:50] LABS: Albumin 2.4 g/dL (3.4-5.0); BUN/Creatinine Ratio 57.8; Bilirubin, Total 0.7 mg/dL (0.2-1.0); Calcium 8.3 mg/dL (8.5-10.1); Total Protein 6.3 g/dL (6.4-8.2)
[2018-10-30 06:52] LABS: Basophils % (auto) 0.3 % (0.0-2.0); Hemoglobin 10.9 g/dL (12.2-16.2); Lymphocytes % (auto) 1.2 % (10.0-50.0); Mean Corpuscular Hemoglobin 22.2 pg (28.0-32.0); Mean Corpuscular Volume 74.1 fL (80.0-100.0); Monocytes # (auto) 0.3 uL; Monocytes % (auto) 2.5 % (0.0-12.0); Platelet Count (auto) 198 10^3/uL (140-450); White Blood Cell 10.8 10^3/uL (4.4-10.8)
[2018-10-30 07:08] LABS: Red Cell Distribution Width 22.8 % (11.8-14.3)
--- NOTE | 2018-10-30 07:24 | NUR ---
CLOSING NOTES ENDORSED CARE TO DAY SHIFT NURSETYREL.
[2018-10-30] MEDS: ONDANSETRON HCL 4 MG/2 ML VIAL IV PRN ×3 (08:05→18:36)
[2018-10-30] MEDS: SOD CHL 0.9%/ KCL 20MEQ 1,000 ML IV SCH ×2 (08:06→11:30)
[2018-10-30] MEDS: HYDROcodone-ACET 5/325MG TAB PO PRN ×2 (08:13→14:51)
[2018-10-30 08:38] VITALS: BP 100/55
--- NOTE | 2018-10-30 08:50 | NUR ---
WEATHERSTRIP MACHINE OPERATOR CONSULT CYRUS SPOKE TO DAUGHTER MAYLIN REGARDING HOSPICE EVALUATION.
[2018-10-30] MEDS: cefTRIAXone 1GM/50ML D5W 50 ML IV SCH (09:14)
[2018-10-30] MEDS: PANTOPRAZOLE 40 MG TAB PO SCH (09:15)
[2018-10-30] MEDS ORDERED: AMIODARONE HCL 200 MG TAB PO SCH ×2 (10:00→22:00)
--- NOTE | 2018-10-30 10:03 | NUR ---
HOSPICE EVALUATION PT SEEN BY ANNA OF [facility], PT SIGNED UP FOR HOSPICE CARE.
--- NOTE | 2018-10-30 11:24 | NUR ---
DR. PEREZ AT BEDSIDE DR. PEREZ TO THE PT AND DAUGHTER MAYLIN, PT AND DAUGHTER AGREED WITH DNR WITHOUT CHEST COMPRESSION AND INTUBATION. DR. PEREZ MADEAWARE PT HAS NO DIET ORDER AND POTASSIUM IS 3.0, ORDERED K RIDER 20 MEQ WITH LIDOCAINE AND CLEAR LIQUID DIET.
[2018-10-30] MEDS ORDERED: POTASSIUM CHLORIDE 20 MEQ, LIDOCAINE 1% (LOCAL ANESTH.) 2 ML in SODIUM CHL 0.9% 100 ML IV ONE (11:45)
--- NOTE | 2018-10-30 12:13 | NUR ---
DR. LANDA AT BEDSIDE DR. LANDA RECOMMEND CT SCAN OF THE HEAD, PT REFUSED.
[2018-10-30] MEDS ORDERED: LACTULOSE 20Gm/30ML SOLN PO PRN (12:30)
[2018-10-30 12:41] VITALS: BP 95/46
--- NOTE | 2018-10-30 13:48 | NUR ---
LOW HEART RATE DR. PEREZ MADE AWARE PT'S HR DROPPED TO 30BPM, DR. PEREZ ORDERED TO CALL DR. CHAUDHARY. Addendum: 10/30/18 at 1350 by Olean Dee RN PT IS ASYMPTOMATIC.
--- NOTE | 2018-10-30 13:50 | NUR ---
PAGED DR. CHAUDHARY FOR HR 30BPM, WAITING FOR CALL BACK.
[2018-10-30] MEDS ORDERED: POLYETHYLENE GLYCOL 17 GM PWDR PO PRN (14:30)
--- NOTE | 2018-10-30 14:38 | NUR ---
Nutrition Assessment Notes please see attached link for complete assessment Est. Needs BW [id number] kcal (25-30 kcal/kgBW), 52-62 gms pro (1.0-1.2 gms/kgBW). Will continue to monitor pertinent labs and reassess nutrient need prn Addendum: 10/30/18 at [address] Amended: Links added.
--- NOTE | 2018-10-30 16:15 | NUR ---
LEHR CUTTER JASON LARIOS AT NURSES STATION MADE AWARE OF THE HR 30BPM. NO FURTHER ORDER. WILL CONTINUE TO MONITOR.
[2018-10-30 16:16] VITALS: BP 99/53
[2018-10-30] MEDS: PIPERACILLIN-TAZOB 3.375GM 100 ML IV SCH (17:22)
--- NOTE | 2018-10-30 17:26 | NUR ---
assessment Per consult hospice eval. Patients daughter Denice has been given a list of medicare providers. Denice patients daughter has signed for [facility]. MD order has been sent to [facility]. Raquel from [facility] has met with patient and Denice and Denice has signed consents. Waiting on discharge now. Addendum: 10/30/18 at 1729 by Zarina Dorsey Amended: Links added.
--- NOTE | 2018-10-30 19:40 | NUR ---
Opening Shift Note Assumed care of patient, awake and alert. No S/S of distress/SOB or pain. Patient on 1L nasal canula. Bed locked in lowest position, side rails upx2, call light within reach. Instructed on POC and to call for assist PRN, will continue to monitor for changes Q1hr and PRN.
[2018-10-30 21:19] VITALS: BP 120/56
[2018-10-30] MEDS: DOCUSATE SOD 100 MG CAP PO SCH (21:40)
[2018-10-31] MEDS: PIPERACILLIN-TAZOB 3.375GM 100 ML IV SCH ×4 (00:06→18:00)
[2018-10-31] MEDS: ALBUTEROL SULF 2.5 MG/0.5ML(0.5%) NEB SOLN NEB SCH ×5 (00:16→23:59)
[2018-10-31] MEDS: SOD CHL 0.9%/ KCL 20MEQ 1,000 ML IV SCH ×2 (01:48→17:45)
[2018-10-31] MEDS: HYDROcodone-ACET 5/325MG TAB PO PRN ×3 (02:35→16:30)
[2018-10-31 04:17] VITALS: BP 112/61
[2018-10-31 06:55] LABS: Albumin 2.4 g/dL (3.4-5.0); Calcium 8.1 mg/dL (8.5-10.1); Potassium 3.1 mmol/L (3.5-5.1)
[2018-10-31 06:59] LABS: BUN/Creatinine Ratio 42.9; Bilirubin, Total 0.7 mg/dL (0.2-1.0); Total Protein 5.8 g/dL (6.4-8.2)
[2018-10-31 07:00] LABS: Mean Corpuscular Hemoglobin 22.1 pg (28.0-32.0); Mean Corpuscular Volume 72.4 fL (80.0-100.0)
[2018-10-31 07:04] LABS: Hematocrit 33.2 % (36.0-46.0); Hemoglobin 10.2 g/dL (12.2-16.2); Mean Corpuscular Hgb Conc. 30.6 g/dL (32.0-36.0); Platelet Count (auto) 201 10^3/uL (140-450); Red Blood Cells 4.59 10^6/uL (4.0-5.20); White Blood Cell 13.2 10^3/uL (4.4-10.8)
[2018-10-31 08:00] VITALS: BP 105/54
[2018-10-31 08:39] LABS: Red Cell Distribution Width 22.6 % (11.8-14.3)
[2018-10-31] MEDS: ONDANSETRON HCL 4 MG/2 ML VIAL IV PRN ×2 (08:44→16:29)
[2018-10-31] MEDS: methylPREDNISolone SOD SUCC 40 MG/ML VL IV SCH ×2 (09:24→21:24)
[2018-10-31] MEDS: DOCUSATE SOD 100 MG CAP PO SCH ×2 (09:24→21:24)
[2018-10-31] MEDS: PANTOPRAZOLE 40 MG TAB PO SCH (09:25)
[2018-10-31 09:59] LABS: Basophils % (manual) 0 (0.0-2.0); Blast Cells 0; Eosinophils % (manual) 0 (0-7); Metamyelocytes % 0; Myelocytes % 0; Promyelocytes % 0; Reactive Lymphocytes 0
[2018-10-31 10:01] LABS: Band Neutrophils % (manual) 2; Lymphocytes % (manual) 1 (10.0-50.0); Monocytes % (manual) 1 (0-12)
[2018-10-31] MEDS ORDERED: BISACODYL 10 MG RECT SUPP PR ONE (10:15)
[2018-10-31] MEDS ORDERED: POTASSIUM CHL 20 Meq TABLET PO ONE (10:30)
[2018-10-31] MEDS ORDERED: ENOXAPARIN SOD 40 MG/0.4 ML SYRINGE SC ONE (10:30)
[2018-10-31 12:18] LABS: INR 1.68 (0.9-1.15)
--- NOTE | 2018-10-31 12:45 | NUR ---
Re: Echo Spoke with [facility] [facility] regarding pending echocardiogram. senior quality technician Hima states he spoke with Garcia regarding similarity of previous tests and the fact that patient had an echo recently. Spoke with Dr. Faulkner and she is ok with the plan of care according to Hima. Will continue to monitor.
[2018-10-31 13:10] VITALS: BP 117/68
--- NOTE | 2018-10-31 14:15 | NUR ---
biological science technician at bedside biological science technician Hima at bedside to perform echocardiogram. Hospitalist paged to make aware.
--- NOTE | 2018-10-31 15:35 | NUR ---
PT Patient refused to be OOB during PT visit with c/o weakness and fatigue due to lack of sleep. Addendum: 10/31/18 at 1536 by ISHAAN ANTON PTT Amended: Links added.
[2018-10-31 16:00] VITALS: BP 106/44
[2018-10-31 22:00] VITALS: BP 114/55
[2018-11-01] MEDS: HYDROcodone-ACET 5/325MG TAB PO PRN ×2 (00:10→09:10)
[2018-11-01] MEDS: ONDANSETRON HCL 4 MG/2 ML VIAL IV PRN ×2 (00:10→09:10)
[2018-11-01] MEDS: PIPERACILLIN-TAZOB 3.375GM 100 ML IV SCH ×3 (00:10→12:36)
[2018-11-01 04:55] VITALS: BP 102/44
[2018-11-01] MEDS ORDERED: SODIUM CHLORIDE 0.9 % NEB SOLN 3ML NEB ONE ×2 (05:34→10:41)
[2018-11-01 06:03] LABS: Hemoglobin 10.2 g/dL (12.2-16.2)
[2018-11-01 06:05] LABS: Hematocrit 32.8 % (36.0-46.0); Mean Corpuscular Hemoglobin 22.4 pg (28.0-32.0); Mean Corpuscular Hgb Conc. 31.1 g/dL (32.0-36.0); Mean Corpuscular Volume 71.8 fL (80.0-100.0); Platelet Count (auto) 209 10^3/uL (140-450); Red Blood Cells 4.56 10^6/uL (4.0-5.20); White Blood Cell 13.3 10^3/uL (4.4-10.8)
[2018-11-01] MEDS: SOD CHL 0.9%/ KCL 20MEQ 1,000 ML IV SCH (06:10)
[2018-11-01 06:22] LABS: Amylase 202 U/L (25-115); Anion Gap 12 (5-15); BUN/Creatinine Ratio 33.8; Blood Urea Nitrogen 26 mg/dL (7-18); Carbon Dioxide 23 mmol/L (21-32); Chloride 109 mmol/L (98-107); GFR African American 95 mL/min; GFR Non-African American 79 mL/min; Glucose 99 mg/dL (74-106); Lipase 697 U/L (73-393); Potassium 3.1 mmol/L (3.5-5.1); Sodium 144 mmol/L (136-145)
[2018-11-01 06:25] LABS: Band Neutrophils % (manual) 0; Basophils % (manual) 0 (0.0-2.0); Blast Cells 0; Eosinophils % (manual) 0 (0-7); Lymphocytes % (manual) 0 (10.0-50.0); Metamyelocytes % 0; Myelocytes % 0; Promyelocytes % 0; Reactive Lymphocytes 0
[2018-11-01] MEDS: ALBUTEROL SULF 2.5 MG/0.5ML(0.5%) NEB SOLN NEB SCH ×2 (06:35→11:54)
[2018-11-01 06:36] LABS: Monocytes % (manual) 4 (0-12)
--- NOTE | 2018-11-01 07:20 | NUR ---
OPENING NOTE ASSUMED CARE OF PATIENT. ALERT AND ORIENTED. NO SIGNS OF SOB/DISTRESS NOTED. BED SET TO LOWEST POSITION/LOCKED. BEDSIDE RAILS UP X2. CALL LIGHT WITHIN REACH. INSTRUCTED PATIENT TO CALL FOR ASSISTANCE. WILL CONTINUE TO MONITOR Q 1HR AND PRN.
[2018-11-01 08:30] VITALS: BP 123/55
[2018-11-01] MEDS: DOCUSATE SOD 100 MG CAP PO SCH (09:09)
[2018-11-01] MEDS: PANTOPRAZOLE 40 MG TAB PO SCH (09:09)
[2018-11-01] MEDS: methylPREDNISolone SOD SUCC 40 MG/ML VL IV SCH (09:09)
[2018-11-01] MEDS ORDERED: ENOXAPARIN SOD 40 MG/0.4 ML SYRINGE SC SCH (10:00)
[2018-11-01] MEDS ORDERED: METH4PAK PO (11:55)
[2018-11-01] MEDS ORDERED: POLY33504 PO (11:55)
[2018-11-01] MEDS ORDERED: DOXY-216 PO (11:55)
[2018-11-01] MEDS ORDERED: POTASSIUM CHL 20 Meq TABLET PO ONE (12:00)
--- NOTE | 2018-11-01 12:12 | NUR ---
PT Patient refused to be OOB or do PT with c/o not feeling well. Patient also refused PT yesterday. Addendum: 11/01/18 at 1214 by ISHAAN ANTON PTT Amended: Links added.
[2018-11-01 12:51] VITALS: BP 123/55
--- NOTE | 2018-11-01 14:58 | NUR ---
re-assessment Patient has been discharged. Patients daughter transported patient home and [facility] met patient at home and service started. Denice verbalized understanding and agreed to discharge plan home on hospice. Addendum: 11/02/18 at 1500 by Zarina TRAMMELL Amended: Links added.
== END 2018-11-01 14:28 | disposition hospice, home (50) | DRG 871 ==
LOC: ER 09:48 → TELE 09:49 → TELE-WESTW 17:38
PROVIDERS: ADMIT Internal Medicine; ATTEND Internal Medicine
DX: A41.9 Sepsis, unspecified organism (principal); K85.90 Acute pancreatitis without necrosis or infection, unspecified; J96.00 Acute respiratory failure, unspecified whether with hypoxia or hypercapnia; N17.0 Acute kidney failure with tubular necrosis; J69.0 Pneumonitis due to inhalation of food and vomit; N39.0 Urinary tract infection, site not specified; I48.92 Unspecified atrial flutter; I31.3 Pericardial effusion (noninflammatory); I31.4 Cardiac tamponade; J98.11 Atelectasis; M48.54XA Collapsed vertebra, not elsewhere classified, thoracic region, initial encounter for fracture; D75.89 Other specified diseases of blood and blood-forming organs; E78.5 Hyperlipidemia, unspecified; E87.6 Hypokalemia; I11.0 Hypertensive heart disease with heart failure; I25.10 Atherosclerotic heart disease of native coronary artery without angina pectoris; I48.0 Paroxysmal atrial fibrillation; I50.9 Heart failure, unspecified; J44.9 Chronic obstructive pulmonary disease, unspecified; K57.30 Diverticulosis of large intestine without perforation or abscess without bleeding; K59.00 Constipation, unspecified; M19.90 Unspecified osteoarthritis, unspecified site; M41.9 Scoliosis, unspecified; T38.0X5A Adverse effect of glucocorticoids and synthetic analogues, initial encounter; Z66 Do not resuscitate; Z85.118 Personal history of other malignant neoplasm of bronchus and lung; Z86.711 Personal history of pulmonary embolism; Z86.73 Personal history of transient ischemic attack (TIA), and cerebral infarction without residual deficits; Z92.3 Personal history of irradiation; Z92.21 Personal history of antineoplastic chemotherapy; Z87.891 Personal history of nicotine dependence; Z88.5 Allergy status to narcotic agent
CPT/HCPCS: 36415; 71045; 74176; 80048; 80053; 81001; 82150; 83690; 83735; 83880; 84443; 85007; 85025; 85027; 85610; 87086; 93005; 93306; 94640; 94761; 96365; 96375; G0378; J0696; J2001; J2405; J2543; J3490